=== PATIENT | female | born 1995 | race Hispanic/Latino ===

== ENCOUNTER 2018-04-20 13:12 | Emergency (ER) | payer OTHER, SELFPAY ==
--- OUTSIDE RECORDS SUMMARY | 2018-04-20 13:17 | XMS REPORT | Summary of Care ---
:1995 Author Organization [facility] [place] Address [address] [place] [address]- Encounter HQ Encntr_alias(FIN) [id number] Date(s): 06/20/16 - 06/20/16 [facility] Out[facility] Imaging [address], [facility] [address] [place] [address]- [phone] Discharge Disposition: Home or Self Care Attending Physician: Adam Sandoval MD Vital Signs No data available for this section Problem List No data available for this section Allergies, Adverse Reactions, Alerts No data available for this section Medications No data available for this section Results No data available for this section Immunizations No data available for this section Procedures No data available for this section Social History No data available for this section Assessment and Plan No data available for this section
--- OUTSIDE RECORDS SUMMARY | 2018-04-20 13:17 | XMS REPORT | Continuity of Care Document ---
:1995 Author Organization Interface Problems Problem Status Onset Classification Date Comments Source Date Reported M25.561 - Active [facility] PAIN [facility] 7 [facility] RIGHT KNEE Medications Medication Details Route Status Patient Ordering Order Source Instructions Provider Date Allergies, Adverse Reactions, Alerts Substance Category Reaction Severity Reaction Status Date Comments Source type Reported Immunizations Immunization Date Given Site Status Last Updated Comments Source Results Order Results Value Reference Date Interpretation Comments Source Name Range Knee wo Knee wo MR RIGHT KNEE WITHOUT CONTRAST 06/20 - [facility] contrast contrast /2016 - [facility] MRI HISTORY: M25.561 Pain in right knee, 21-year-old female reports right knee pain, mechanical symptoms, swelling, and subjective instability for approximately 2 years which may be related to exercise, history of arthroscopy and lateral release Read by: Ihsan Crouch MD Dictated Date/time: 06/20/16 10:35 Electronically Signed by: Ihsan Crouch MD 06/20/16 10:44 FINAL REPORT COMPARISON: None available TECHNIQUE: Multiplanar, multisequence noncontrast imaging of the knee. FINDINGS: MENISCI: 1. Medial meniscus: Intact. 2. Lateral meniscus: Intact. CARTILAGE: 3. Medial compartment cartilage: Normal. 4. Lateral compartment cartilage: Normal. CRUCIATE LIGAMENTS: 5. Anterior cruciate ligament: Normal. 6. Posterior cruciate ligament: Normal. COLLATERAL LIGAMENTS: 7. Medial collateral ligament complex: Normal. 8. Lateral collateral ligament complex: Normal. EXTENSOR MECHANISM: 9. Mild surface fibrillation and abnormal signal in the cartilage of the lateral patellar facet. Trochlear cartilage is preserved. 10. Mild lateral patellar subluxation measuring 5 mm. 11. Discontinuity of the lateral patellar retinaculum compatible with prior lateral release. 12. Trace soft tissue inflammatory signal in the superolateral aspect of the infrapatellar fat-pad (sagittal series 601 image 22 and axial series 301 image 14). 13. No tibial tubercle excessive lateralization. Tibial tubercle-trochlear groove distance: 15 mm. (normal less than 15-20 mm) 14. No lateral patellar tilting. Patellar tilt angle: 14 degrees. (normal less than 15 degrees) 15. Normal lateral trochlear inclination: 20 degrees. (normal greater than 11 degrees) 16. Patella orlin. Patellar height ratio: 1.5. (normal less than 1.3) 17. Intact patellar and quadriceps tendons. OTHER: 18. No fracture or marrow edema. 19. No joint effusion or popliteal cyst. IMPRESSION: 1. No meniscus tear. 2. Mild lateral patellar chondromalacia, trace inflammation in the infrapatellar fat-pad, and patella orlin. 3. Changes of prior lateral release. Thank you for referring your patient to [facility] and [facility]. SL: [id number] Vital Signs Vital Sign Value Date Comments Source Encounters Location Location Encounter Encounter Reason Attending ADM DC Status Source Details Type Number For Provider Date Date Visit ANDRY Rueda [id number] Adam 06/20 06/21 [facility] Full /2016 [facility] Procedures Procedure Code Date Perfomer Comments Source
--- NOTE | 2018-04-20 14:16 | EDPHYS ---
Physician Documentation [facility] Name: Naomi Hurt Age: 23 yrs Sex: Female : 1995 Arrival Date: 04/20/2018 Time: 13:15 Bed 10 Private MD: None, None ED Physician Mando Karimi HPI: 04/20 14:11 This 23 yrs old Female presents to ER via Ambulatory with complaints of Sore nelia Throat, Fever. 14:11 The patient presents with sore throat. The patient describes throat pain as burning, nelia constant. Onset: The symptoms/episode began/occurred 2 day(s) ago. Severity of symptoms: At their worst the symptoms were mild, moderate, in the emergency department the symptoms are unchanged. Modifying factors: The symptoms are alleviated by nothing, the symptoms are aggravated by swallowing. Associated signs and symptoms: Pertinent positives: fever. The patient has not experienced similar symptoms in the past. 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 - Social history:: Smoking status: Patient/guardian denies using tobacco. - Ebola Screening: : No symptoms or risks identified at this time. ROS: 14:13 Constitutional: Negative for fever, chills, and weight loss, Eyes: Negative for injury, nelia pain, redness, and discharge, Neck: Negative for injury, pain, and swelling, Cardiovascular: Negative for chest pain, palpitations, and edema, Respiratory: Negative for shortness of breath, cough, wheezing, and pleuritic chest pain, Abdomen/GI: Negative for abdominal pain, nausea, vomiting, diarrhea, and constipation, Back: Negative for injury and pain, : Negative for injury, bleeding, discharge, and swelling, MS/Extremity: Negative for injury and deformity, Skin: Negative for injury, rash, and discoloration, Neuro: Negative for headache, weakness, numbness, tingling, and seizure, Psych: Negative for depression, anxiety, suicide ideation, homicidal ideation, and hallucinations, Allergy/Immunology: Negative for hives, rash, and allergies, Endocrine: Negative for neck swelling, polydipsia, polyuria, polyphagia, and marked weight changes, Hematologic/Lymphatic: Negative for swollen nodes, abnormal bleeding, and unusual bruising. 14:13 ENT: Positive for difficulty swallowing, sore throat. Exam: 14:13 Constitutional: This is a well developed, well nourished patient who is awake, alert, nelia and in no acute distress. Head/Face: Normocephalic, atraumatic. Eyes: Pupils equal round and reactive to light, extra-ocular motions intact. Lids and lashes normal. Conjunctiva and sclera are non-icteric and not injected. Cornea within normal limits. Periorbital areas with no swelling, redness, or edema. Neck: Trachea midline, no thyromegaly or masses palpated, and no cervical lymphadenopathy. Supple, full range of motion without nuchal rigidity, or vertebral point tenderness. No Meningismus. Chest/axilla: Normal chest wall appearance and motion. Nontender with no deformity. No lesions are appreciated. Cardiovascular: Regular rate and rhythm with a normal S1 and S2. No gallops, murmurs, or rubs. Normal PMI, no JVD. No pulse deficits. Respiratory: Lungs have equal breath sounds bilaterally, clear to auscultation and percussion. No rales, rhonchi or wheezes noted. No increased work of breathing, no retractions or nasal flaring. Abdomen/GI: Soft, non-tender, with normal bowel sounds. No distension or tympany. No guarding or rebound. No evidence of tenderness throughout. Female : Normal external genitalia. Skin: Warm, dry with normal turgor. Normal color with no rashes, no lesions, and no evidence of cellulitis. MS/ Extremity: Pulses equal, no cyanosis. Neurovascular intact. Full, normal range of motion. Neuro: Awake and alert, GCS 15, oriented to person, place, time, and situation. Cranial nerves II-XII grossly intact. Motor strength 5/5 in all extremities. Sensory grossly intact. Cerebellar exam normal. Normal gait. Psych: Awake, alert, with orientation to person, place and time. Behavior, mood, and affect are within normal limits. 14:13 ENT: Posterior pharynx: Tonsils: bilaterally enlarged, with erythema, with exudate, Uvula: normal, midline, erythema, swelling, that is mild, erythema, that is mild, exudate, that is moderate, peritonsillar mass, is not appreciated. Vital Signs: 13:20 BP 128 / 88; Pulse 100; Resp 16; Temp 98.4; Pulse Ox 100% on R/A; Weight 70.31 kg; hb Height 5 ft. (152.40 cm); Pain 10/10; 13:20 Body Mass Index 30.27 (70.31 kg, 152.40 cm) MDM: 13:28 Patient medically screened. [facility] 04/20 13:22 Order name: Strep 04/20 13:22 Order name: Flu 04/20 14:47 Order name: Group A Streptococcus Rapid Sc EDMS 04/20 14:47 Order name: Influenza Screen (A EDPR Administered Medications: 14:40 Drug: Bicillin L-A 1.8 million units Route: IM; Site: left gluteus; hb Disposition: 04/20/18 14:15 Discharged to Home. Impression: Acute tonsillitis, Fever, unspecified. - Condition is Stable. - Discharge Instructions: Fever, Adult, Tonsillitis, Tonsillitis, Ofeb-up-Cade, Fever, Adult, Ujar-oy-Rxwl. - Work release form, Medication Reconciliation Form, Thank You Letter, Antibiotic Education, Prescription Opioid Use form. - Follow up: Private Physician; When: 2 - 3 days; Reason: Recheck today's complaints, Continuance of care, Re-evaluation by your physician. - Problem is new. - Symptoms have improved. Signatures: Dispatcher [employer] EDLauri Edwards RN RN sg Anderson, Corey, MD MD cha Baxter, Heather, RN RN Corrections: (The following items were deleted from the chart) 15:28 14:15 04/20/2018 14:15 Discharged to Home. Impression: Acute tonsillitis; Fever, sg unspecified. Condition is Stable. Forms are Medication Reconciliation Form, Thank You Letter, Antibiotic Education, Prescription Opioid Use. Follow up: Private Physician; When: 2 - 3 days; Reason: Recheck today's complaints, Continuance of care, Re-evaluation by your physician. Problem is new. Symptoms have improved. nelia
--- NOTE | 2018-04-20 14:16 | ER ---
Nurse's Notes [facility] Name: Naomi Hurt Age: 23 yrs Sex: Female : 1995 Arrival Date: 04/20/2018 Time: 13:15 Bed 10 Private MD: None, None Diagnosis: Acute tonsillitis;Fever, unspecified Presentation: 04/20 13:19 Presenting complaint: Patient states: Sore throat, pain with cough, productive cough hb with green sputum, body aches, sinus congestion, and fever x 3 days. Transition of care: patient was not received from another setting of care. Onset of symptoms was April 20, 2018. Risk Assessment: Do you want to hurt yourself or someone else? Patient reports no desire to harm self or others. Care prior to arrival: None. 13:19 Method Of Arrival: Ambulatory hb 13:19 Acuity: MANDEEP 4 hb 13:45 Initial Sepsis Screen: Does the patient meet any 2 criteria? No. Patient's initial hb sepsis screen is negative. Does the patient have a suspected source of infection? No. Patient's initial sepsis screen is negative. 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 - Social history:: Smoking status: Patient/guardian denies using tobacco. - Ebola Screening: : No symptoms or risks identified at this time. Screenin:45 Abuse screen: Denies threats or abuse. Denies injuries from another. Nutritional hb screening: No deficits noted. Tuberculosis screening: No symptoms or risk factors identified. Fall Risk None identified. Assessment: 13:44 General: Appears in no apparent distress. Behavior is calm, cooperative. Pain: Pain hb currently is 10 out of 10 on a pain scale. Neuro: Level of Consciousness is awake, alert, obeys commands, Oriented to person, place, time, situation. Cardiovascular: Capillary refill < 3 seconds Patient's skin is warm and dry. Respiratory: Airway is patent Trachea midline Respiratory effort is even, unlabored, Respiratory pattern is regular, symmetrical, Breath sounds are clear bilaterally. GI: No signs and/or symptoms were reported involving the gastrointestinal system. : No signs and/or symptoms were reported regarding the genitourinary system. EENT: Throat is reddened has patchy exudate has enlarged tonsils bilaterally. Derm: Skin is intact, is healthy with good turgor. Musculoskeletal: No signs and/or symptoms reported regarding the musculoskeletal system. Vital Signs: 13:20 BP 128 / 88; Pulse 100; Resp 16; Temp 98.4; Pulse Ox 100% on R/A; Weight 70.31 kg; hb Height 5 ft. (152.40 cm); Pain 10/10; 13:20 Body Mass Index 30.27 (70.31 kg, 152.40 cm) hb ED Course: 13:15 Patient arrived in ED. sb2 13:17 None, None is Private Physician. sb2 13:20 Triage completed. hb 13:21 Arm band placed on left wrist. 13:28 Mando Karimi MD is Attending Physician. nelia 13:44 Barbi Salter, RN is Primary Nurse. hb 13:45 Patient has correct armband on for positive identification. Call light in reach. hb 13:45 No provider procedures requiring assistance completed. sg 15:25 Patient did not have IV access during this emergency room visit. sg Administered Medications: 14:40 Drug: Bicillin L-A 1.8 million units Route: IM; Site: left gluteus; hb Outcome: 14:15 Discharge ordered by . [facility] 15:25 Discharged to home ambulatory. sg 15:25 Condition: good 15:25 Discharge instructions given to patient, Instructed on discharge instructions, follow up and referral plans. safety practices, Demonstrated understanding of instructions, follow-up care. 15:28 Patient left the ED. sg Signatures: Lauri Holman, RN RN Mando Art MD MD cha Baxter, Heather, KAMILA TREVIÑO Suzie Shirley sb2 Corrections: (The following items were deleted from the chart) 15:29 15:25 Discharge instructions given to patient, Instructed on discharge instructions, sg follow up and referral plans. safety practices, Demonstrated understanding of instructions, follow-up care, Prescriptions given X 1, sg
[2018-04-20] MEDS ORDERED: PEN G BENZ LA 2.4 MU/4 ML SYRINGE IM ONE (14:48)
== END 2018-04-20 15:28 | disposition home or self-care (01) ==
LOC: ER 13:12
DX: J03.90 Acute tonsillitis, unspecified (principal); R50.9 Fever, unspecified
CPT/HCPCS: 87070; 87081; 87804; 96372; 99283; J0561

== ENCOUNTER 2019-01-11 08:55 | Emergency (ER) | payer BC, SELFPAY ==
--- OUTSIDE RECORDS SUMMARY | 2019-01-11 08:57 | XMS REPORT | Continuity of Care Document ---
:1995 Author Organization [facility] Care Team Providers Name Role Phone [facility] Unavailable Unavailable Problems Problem Status Onset Classification Date Comments Source Date Reported M25.561 - Active [facility] PA[facility] RIGHT KNEE Medications No Data Provided for This Section Allergies, Adverse Reactions, Alerts No Known Medication Allergies Immunizations No Data Provided for This Section Results No Data Provided for This Section Pathology Reports No Data Provided for This Section Diagnostic Reports Report Value Date Source Knee wo contrast MRI MR RIGHT KNEE WITHOUT CONTRAST 06/20/2016 [facility] HISTORY: M25.561 Pain in right knee, 21-year-old female reports right knee pain, mechanical symptoms, swelling, and subjective instability for approximately 2 years which may be related to exercise, history of arthroscopy and lateral release COMPARISON: None available TECHNIQUE: Multiplanar, multisequence noncontrast [...] Thank you for referring your patient to [facility] and [facility]. SL: [id number] Consultation Notes No Data Provided for This Section Discharge Summaries No Data Provided for This Section History and Physicals No Data Provided for This Section Vital Signs No Data Provided for This Section Encounters Location Location Encounter Encounter Reason Attending ADM DC Status Source Details Type Number For Provider Date Date Visit [facility] Outpt Diag [id number] Adam 06/20 06/21 [facility] Procedures No Data Provided for This Section Assessment and Plan No Data Provided for This Section Plan of Care No Data Provided for This Section Social History Social History Date Source No data available for this 06/21/2016 [facility] section Family History No Data Provided for This Section Advance Directives No Data Provided for This Section Functional Status No Data Provided for This Section
--- NOTE | 2019-01-11 09:31 | ER ---
Nurse's Notes [facility] Name: Naomi Hurt Age: 23 yrs Sex: Female : 1995 Arrival Date: 01/11/2019 Time: 08:58 Bed 14 Private MD: Diagnosis: Acute tonsillitis Presentation: 01/11 08:59 Presenting complaint: Patient states: Throat started hurting a week ago and she is rb1 running a fever off and on. Transition of care: patient was not received from another setting of care. Onset of symptoms is unknown. Risk Assessment: Do you want to hurt yourself or someone else? Patient reports no desire to harm self or others. Initial Sepsis Screen: Does the patient meet any 2 criteria? No. Patient's initial sepsis screen is negative. Does the patient have a suspected source of infection? No. Patient's initial sepsis screen is negative. Care prior to arrival: None. 08:59 Method Of Arrival: Ambulatory rb1 08:59 Acuity: MANDEEP 3 rb1 Triage Assessment: 08:59 General: Appears in no apparent distress. comfortable, Behavior is calm, cooperative, rb1 Reports fever for. Pain: Complains of pain in throat Pain currently is 9 out of 10 on a pain scale. Pain began x 1 week. EENT: Throat is reddened. Neuro: Level of Consciousness is awake, alert, obeys commands, Oriented to person, place, time, situation. Cardiovascular: Capillary refill < 3 seconds is brisk in bilateral fingers. Respiratory: Reports cough that is dry, Airway is patent Respiratory effort is even, unlabored, Respiratory pattern is regular, symmetrical. GI: No signs and/or symptoms were reported involving the gastrointestinal system. : No signs and/or symptoms were reported regarding the genitourinary system. Derm: Skin is pink, warm \T\ dry. Musculoskeletal: Range of motion: intact in all extremities. 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 - Social history:: Smoking status: Patient/guardian denies using tobacco. - Ebola Screening: : Patient negative for fever greater than or equal to 101.5 degrees Fahrenheit, and additional compatible Ebola Virus Disease symptoms. - Family history:: not pertinent. Screenin:59 Abuse screen: Denies threats or abuse. Nutritional screening: No deficits noted. rb1 Tuberculosis screening: No symptoms or risk factors identified. Fall Risk None identified. Assessment: 08:59 General: See triage assessment. rb1 08:59 Respiratory: Breath sounds are clear bilaterally. rb1 09:40 Reassessment: Discharge pending due to shot time. rb1 09:53 Reassessment: Patient appears in no apparent distress at this time. No changes from rb1 previously documented assessment. Vital Signs: 08:59 BP 128 / 82; Pulse 80; Resp 16; Temp 97.7(TE); Pulse Ox 99% on R/A; Weight 75.75 kg rb1 (R); Height 5 ft. 0 in. (152.40 cm) (R); Pain 9/10; 09:53 BP 127 / 75; Pulse 77; Resp 17; Temp 98.0(O); Pulse Ox 100% on R/A; Pain 9/10; rb1 08:59 Body Mass Index 32.61 (75.75 kg, 152.40 cm) [facility] ED Course: 08:58 Patient arrived in ED. mr 08:59 Kristen Myles, RN is Primary Nurse. rb1 08:59 Arm band placed on right wrist. rb1 08:59 Patient has correct armband on for positive identification. Bed in low position. Call rb1 light in reach. Side rails up X 1. Pulse ox on. NIBP on. 09:01 Mando Karimi MD is Attending Physician. nelia 09:05 Strep swab sent to lab. rb1 09:15 Triage completed. rb1 09:53 No provider procedures requiring assistance completed. Patient did not have IV access rb1 during this emergency room visit. Administered Medications: 09:36 Drug: Clindamycin 300 mg Route: PO; rb1 09:52 Follow up: Response: No adverse reaction; Pt. has had this medication in the past. rb1 09:37 Drug: Bicillin L-A 1.2 million units Route: IM; Site: left gluteus; rb1 09:55 Follow up: Response: No adverse reaction; Pt. has had this medication in the past. rb1 09:39 Drug: Decadron 10 mg Route: IM; Site: left deltoid; rb1 09:52 Follow up: Response: No adverse reaction rb1 Intake: Outcome: 09:31 Discharge ordered by . nelia 09:53 Discharged to home ambulatory. rb1 09:53 Condition: stable 09:53 Discharge instructions given to patient, Instructed on discharge instructions, follow up and referral plans. medication usage, Demonstrated understanding of instructions, follow-up care, medications, Prescriptions given X 1. 09:56 Patient left the ED. rb1 Signatures: Mando Karimi MD MD cha Rivera, Mary mr Barber, Rebecca, RN RN rb1
[2019-01-11] MEDS ORDERED: dexAMETHasone 10 MG/ML VIAL ONE (09:32)
[2019-01-11] MEDS ORDERED: CLINDAMYCIN HCL 150 MG CAP ONE (09:32)
--- NOTE | 2019-01-11 09:32 | EDPHYS ---
Physician Documentation [facility] Name: Naomi Hurt Age: 23 yrs Sex: Female : 1995 Arrival Date: 01/11/2019 Time: 08:58 Bed 14 Private MD: ED Physician Mando Karimi HPI: 01/11 09:28 This 23 yrs old Female presents to ER via Ambulatory with complaints of Sore nelia Throat. 09:28 The patient presents with sore throat. The patient describes throat pain as burning, nelia constant. Onset: The symptoms/episode began/occurred 5 day(s) ago. Severity of symptoms: At their worst the symptoms were mild, moderate, in the emergency department the symptoms are unchanged. Modifying factors: The symptoms are alleviated by nothing. Associated signs and symptoms: The patient has no apparent associated signs or symptoms. The patient has not experienced similar symptoms in the past. 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 - Social history:: Smoking status: Patient/guardian denies using tobacco. - Ebola Screening: : Patient negative for fever greater than or equal to 101.5 degrees Fahrenheit, and additional compatible Ebola Virus Disease symptoms. - Family history:: not pertinent. ROS: 09:28 Constitutional: Negative for fever, chills, and weight loss, Eyes: Negative for injury, nelia pain, redness, and discharge, Neck: Negative for injury, pain, and swelling, Cardiovascular: Negative for chest pain, palpitations, and edema, Respiratory: Negative for shortness of breath, cough, wheezing, and pleuritic chest pain, Abdomen/GI: Negative for abdominal pain, nausea, vomiting, diarrhea, and constipation, Back: Negative for injury and pain, : Negative for injury, bleeding, discharge, and swelling, MS/Extremity: Negative for injury and deformity, Skin: Negative for injury, rash, and discoloration, Neuro: Negative for headache, weakness, numbness, tingling, and seizure, Psych: Negative for depression, anxiety, suicide ideation, homicidal ideation, and hallucinations, Allergy/Immunology: Negative for hives, rash, and allergies, Endocrine: Negative for neck swelling, polydipsia, polyuria, polyphagia, and marked weight changes, Hematologic/Lymphatic: Negative for swollen nodes, abnormal bleeding, and unusual bruising. 09:28 ENT: Positive for difficulty swallowing, sinus congestion, sore throat. Exam: 09:28 Constitutional: This is a well developed, well nourished patient who is awake, alert, nelia and in no acute distress. Head/Face: Normocephalic, atraumatic. Eyes: Pupils equal round and reactive to light, extra-ocular motions intact. Lids and lashes normal. Conjunctiva and sclera are non-icteric and not injected. Cornea within normal limits. Periorbital areas with no swelling, redness, or edema. Neck: Trachea midline, no thyromegaly or masses palpated, and no cervical lymphadenopathy. Supple, full range of motion without nuchal rigidity, or vertebral point tenderness. No Meningismus. Chest/axilla: Normal chest wall appearance and motion. Nontender with no deformity. No lesions are appreciated. Cardiovascular: Regular rate and rhythm with a normal S1 and S2. No gallops, murmurs, or rubs. Normal PMI, no JVD. No pulse deficits. Respiratory: Lungs have equal breath sounds bilaterally, clear to auscultation and percussion. No rales, rhonchi or wheezes noted. No increased work of breathing, no retractions or nasal flaring. Abdomen/GI: Soft, non-tender, with normal bowel sounds. No distension or tympany. No guarding or rebound. No evidence of tenderness throughout. Back: No spinal tenderness. No costovertebral tenderness. Full range of motion. Skin: Warm, dry with normal turgor. Normal color with no rashes, no lesions, and no evidence of cellulitis. MS/ Extremity: Pulses equal, no cyanosis. Neurovascular intact. Full, normal range of motion. Neuro: Awake and alert, GCS 15, oriented to person, place, time, and situation. Cranial nerves II-XII grossly intact. Motor strength 5/5 in all extremities. Sensory grossly intact. Cerebellar exam normal. Normal gait. Psych: Awake, alert, with orientation to person, place and time. Behavior, mood, and affect are within normal limits. 09:28 ENT: Posterior pharynx: Tonsils: enlarged on the right, enlarged on the left, with erythema, with exudate, right greater than left, Uvula: normal, midline, swelling, is not appreciated, that is mild, erythema, that is mild, exudate, that is mild. Vital Signs: 08:59 BP 128 / 82; Pulse 80; Resp 16; Temp 97.7(TE); Pulse Ox 99% on R/A; Weight 75.75 kg rb1 (R); Height 5 ft. 0 in. (152.40 cm) (R); Pain 9/10; 09:53 BP 127 / 75; Pulse 77; Resp 17; Temp 98.0(O); Pulse Ox 100% on R/A; Pain 9/10; rb1 08:59 Body Mass Index 32.61 (75.75 kg, 152.40 cm) rb1 MDM: 09:01 Patient medically screened. [facility] 09:30 Data reviewed: vital signs, nurses notes, lab test result(s). [facility] 01/11 09:01 Order name: Strep rb1 Administered Medications: 09:36 Drug: Clindamycin 300 mg Route: PO; rb1 09:52 Follow up: Response: No adverse reaction; Pt. has had this medication in the past. rb1 09:37 Drug: Bicillin L-A 1.2 million units Route: IM; Site: left gluteus; rb1 09:55 Follow up: Response: No adverse reaction; Pt. has had this medication in the past. rb1 09:39 Drug: Decadron 10 mg Route: IM; Site: left deltoid; rb1 09:52 Follow up: Response: No adverse reaction rb1 Disposition: 01/11/19 09:31 Discharged to Home. Impression: Acute tonsillitis. - Condition is Stable. - Discharge Instructions: Tonsillitis, Tonsillitis, [id number]. - Prescriptions for Clindamycin HCl 300 mg Oral Capsule - take 1 capsule by ORAL route every 6 hours for 7 days; 28 capsule. - Work release form, Medication Reconciliation Form, Thank You Letter, Antibiotic Education, Prescription Opioid Use form. - Follow up: Private Physician; When: 2 - 3 days; Reason: Recheck today's complaints, Continuance of care, Re-evaluation by your physician. - Problem is new. - Symptoms have improved. Signatures: Dispatcher [employer] EDMS Mando Karimi MD MD cha Barber, Rebecca RN RN rb1 Corrections: (The following items were deleted from the chart) 09:56 09:31 01/11/2019 09:31 Discharged to Home. Impression: Acute tonsillitis. Condition is rb1 Stable. Forms are Medication Reconciliation Form, Thank You Letter, Antibiotic Education, Prescription Opioid Use. Follow up: Private Physician; When: 2 - 3 days; Reason: Recheck today's complaints, Continuance of care, Re-evaluation by your physician. Problem is new. Symptoms have improved. nelia
[2019-01-11] MEDS ORDERED: PEN G BENZ LA 1.2MU/2ML SYRINGE IM ONE (09:33)
== END 2019-01-11 09:56 | disposition home or self-care (01) ==
LOC: ER 08:55
DX: J03.90 Acute tonsillitis, unspecified (principal)
CPT/HCPCS: 87070; 87081; 96372; 99284; J0561; J1100

== ENCOUNTER 2019-01-24 22:11 | Emergency (ER) | payer BC ==
--- OUTSIDE RECORDS SUMMARY | 2019-01-24 22:13 | XMS REPORT | Continuity of Care Document ---
:1995 Author Organization [facility] Care Team Providers Name Role Phone [employer] Unavailable Unavailable Problems Problem Status Onset Classification Date Comments Source Date Reported M25.561 - Active [facility] PAIN IN [facility] [place] RIGHT KNEE Medications No Data Provided for This Section Allergies, Adverse Reactions, Alerts No Known Medication Allergies Immunizations No Data Provided for This Section Results No Data Provided for This Section Pathology Reports No Data Provided for This Section Diagnostic Reports Report Value Date Source Knee wo contrast MRI MR RIGHT KNEE WITHOUT CONTRAST 06/20/2016 [facility] [place] HISTORY: M25.561 Pain in right knee, 21-year-old [...] Thank you for referring your patient to [facility] and [facility]. SL: [id number] Consultation Notes No Data Provided for This Section Discharge Summaries No Data Provided for This Section History and Physicals No Data Provided for This Section Vital Signs No Data Provided for This Section Encounters Location Location Encounter Encounter Reason Attending ADM DC Status Source Details Type Number For Provider Date Date Visit [facility] Outpt Diag [id number] Adam 06/20 06/21 [facility] Procedures No Data Provided for This Section Assessment and Plan No Data Provided for This Section Plan of Care No Data Provided for This Section Social History Social History Date Source No data available for this 06/21/2016 [facility] [place] section Family History No Data Provided for This Section Advance Directives No Data Provided for This Section Functional Status No Data Provided for This Section
[2019-01-25] MEDS ORDERED: KETOROLAC 30 MG/ML INJ ONE
[2019-01-25] MEDS ORDERED: NA CHLORIDE 0.9% 1,000 ML ONE
[2019-01-25 00:23] LABS: Absolute Lymphocytes (CBC) 2.1 K/uL (0.7-4.9); Basophils % 0.2 % (0-1.3); Hematocrit 38.8 % (36.0-45.0); Lymphocytes % 21.7 % (15.3-44.8); MPV 10.6 fL (7.6-11.3); RBC Red Blood Cell Count 4.78 M/uL (3.86-4.86)
[2019-01-25 00:33] LABS: Protime INR 1.04
[2019-01-25 00:42] LABS: ALT/SGPT 51 U/L (12-78); AST/SGOT 21 U/L (15-37); Albumin 3.9 g/dL (3.4-5.0); Alkaline Phosphatase 94 U/L (45-117); BUN Blood Urea Nitrogen 15 mg/dL (7-18); Bicarbonate 25 mmol/L (21-32); Bilirubin Direct < 0.1 mg/dL (0-0.2); Bilirubin Total 0.2 mg/dL (0.2-1.0); Glucose Level 104 mg/dL (74-106); Lipase 129 U/L (73-393); Magnesium 2.2 mg/dL (1.8-2.4); NT PRO-BNP 25 pg/mL (<125); Potassium 3.3 mmol/L (3.5-5.1); Protein, Total 8.2 g/dL (6.4-8.2); Sodium Level 142 mmol/L (136-145); Troponin (Emerg Dept Use Only) < 0.02 ng/mL (0.0-0.045)
--- NOTE | 2019-01-25 01:50 | ER ---
Nurse's Notes [facility] Name: Naomi Hurt Age: 24 yrs Sex: Female : 1995 Arrival Date: 01/24/2019 Time: 22:12 Bed 5 Private MD: Eliezer Flores Diagnosis: Other chest pain Presentation: 01/24 22:26 Presenting complaint: Patient states: She was recently diagnosed with tonsillitis on ajJanuary 11, but she also has some chest congestion and discomfort. She was given a Rx for Clindamycin, which she took for 4 days but then it was giving her dark colored diarrhea so she stopped taking. Her chest discomfort never went away, and now it has gotten worse. Reports substernal chest pain that is worse when she takes a deep breath or coughs. Respirations are even and unlabored. Transition of care: patient was not received from another setting of care. Onset of symptoms was January 24, 2019. Risk Assessment: Do you want to hurt yourself or someone else? Patient reports no desire to harm self or others. Initial Sepsis Screen: Does the patient meet any 2 criteria? HR > 90 bpm. No. Patient's initial sepsis screen is negative. Does the patient have a suspected source of infection? No. Patient's initial sepsis screen is negative. Care prior to arrival: None. 22:26 Method Of Arrival: Ambulatory aj1 22:26 Acuity: MANDEEP 3 aj1 Triage Assessment: 22:30 General: Appears in no apparent distress. uncomfortable, Behavior is calm, cooperative, aj1 appropriate for age. Pain: Complains of pain in mid-sternal area Pain does not radiate. Pain currently is 10 out of 10 on a pain scale. Neuro: Level of Consciousness is awake, alert, obeys commands. Cardiovascular: Reports chest pain, Patient's skin is warm and dry. Respiratory: Airway is patent Respiratory effort is even, unlabored, Respiratory pattern is regular, symmetrical. 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 - Social history:: Smoking status: Patient/guardian denies using tobacco. - Ebola Screening: : Patient denies travel to an Ebola-affected area in the 21 days before illness onset. Screenin:15 Abuse screen: Denies threats or abuse. Nutritional screening: No deficits noted. fc Tuberculosis screening: No symptoms or risk factors identified. Fall Risk None identified. Assessment: 23:34 General: Appears uncomfortable, obese, well groomed, Behavior is cooperative, fc appropriate for age, crying. Pain: Complains of pain in mid-sternal area Quality of pain is described as aching, tender, Pain began 1 day ago. Is episodic, Aggravated by breathing. Neuro: Level of Consciousness is awake, alert, obeys commands, Oriented to person, place, time, situation, Appropriate for age. Cardiovascular: Reports chest pain, shortness of breath, Heart tones S1 S2 present Capillary refill < 3 seconds Rhythm is regular Chest pain is described as vague, is located in substernal area began 1 day ago episodes are intermittent. Respiratory: Reports shortness of breath cough that is dry, Airway is patent Respiratory effort is even, unlabored, Respiratory pattern is regular, symmetrical, Breath sounds are clear bilaterally. Onset: The symptoms/episode began/occurred gradually, the patient has mild shortness of breath. GI: No deficits noted. : No deficits noted. EENT: No deficits noted. Derm: Skin is pink, warm \T\ dry. Musculoskeletal: Circulation, motion, and sensation intact. Capillary refill < 3 seconds, Range of motion: intact in all extremities. 01/25 00:17 Reassessment: No changes from previously documented assessment. Patient and/or family fc updated on plan of care and expected duration. Pain level reassessed. Patient is alert, oriented x 3, equal unlabored respirations, skin warm/dry/pink. Pt given medications as ordered. Family remains at bedside. 00:51 Reassessment: No changes from previously documented assessment. Patient and/or family fc updated on plan of care and expected duration. Pain level reassessed. Patient is alert, oriented x 3, equal unlabored respirations, skin warm/dry/pink. Pt states that she is no longer feeling the chest pressure. 01:22 Reassessment: Pt is now just pending results of testing. fc 01:55 Reassessment: Page PA in to see and discuss d/c instructions with pt. fc Vital Signs: 01/24 22:30 BP 137 / 89; Pulse 93; Resp 18; Temp 98.9; Pulse Ox 100% on R/A; Weight 75.75 kg (R); aj1 Height 5 ft. 0 in. (152.40 cm) (R); Pain 10/10; 23:30 BP 114 / 62; Pulse 91; Resp 18; Pulse Ox 100% on R/A; fc 01/25 00:17 BP 137 / 88; Pulse 73; Resp 20; Pulse Ox 100% on R/A; fc 00:52 BP 129 / 83; Pulse 79; Resp 20; Pulse Ox 99% on R/A; Pain 4/10; fc 01:23 BP 124 / 75; Pulse 81; Resp 18; Pulse Ox 100% ; fc 02:03 BP 129 / 72; Pulse 78; Resp 18; Temp 98.0; Pulse Ox 100% on R/A; Pain 2/10; fc 01/24 22:30 Body Mass Index 32.61 (75.75 kg, 152.40 cm) aj ED Course: 01/24 22:12 Patient arrived in ED. cl3 22:13 Eliezer Flores DO is Private Physician. cl3 22:29 Triage completed. aj1 22:30 Arm band placed on Patient placed in waiting room, Patient notified of wait time. aj1 23:03 Mando Hartmann PA is PHCP. cp 23:03 Robert Oliveira MD is Attending Physician. cp 23:15 Patient has correct armband on for positive identification. Bed in low position. Call fc light in reach. Side rails up X 1. lunchroom monitor on. Pulse ox on. NIBP on. 23:15 No provider procedures requiring assistance completed. Patient maintains SpO2 fc saturation greater than 95% on room air. 01/25 00:01 Initial lab(s) drawn, by me, sent to lab. Inserted saline lock: 22 gauge in right lt1 forearm, using aseptic technique. 00:33 XRAY Chest (1 view) In Process Unspecified. EDMS 02:04 IV discontinued, intact, bleeding controlled, No redness/swelling at site. Pressure fc dressing applied. Administered Medications: 00:08 Drug: NS 0.9% 1000 ml Route: IV; Rate: 1 bolus; Site: right antecubital; fc 02:03 Follow up: Response: No adverse reaction; No change in condition; IV Status: Completed fc infusion; IV Intake: 1000ml 00:10 Drug: TORadol 30 mg Route: IVP; Site: right antecubital; fc 00:50 Follow up: Response: No adverse reaction; Pain is decreased fc Intake: 02:03 IV: 1000ml; Total: 1000ml. fc Outcome: 01:48 Discharge ordered by MD. cp 02:04 Discharged to home ambulatory, with family. fc 02:04 Condition: good 02:04 Discharge instructions given to patient, family, Instructed on discharge instructions, follow up and referral plans. no drinking with medication, no driving heavy equipment, medication usage, Demonstrated understanding of instructions, follow-up care, medications, Prescriptions given X 1. 02:17 Patient left the ED. Signatures: Dispatcher [employer] EDMarge Phoenix RN RN Josefina Arriola RN RN fc Mando Hartmann PA PA cp Tran, Leah 1 Avtar Egan cl3
--- NOTE | 2019-01-25 01:50 | EDPHYS ---
Physician Documentation [facility] Name: Naomi Hurt Age: 24 yrs Sex: Female : 1995 Arrival Date: 01/24/2019 Time: 22:12 Bed 5 Private MD: Freddie Floresh ED Physician Robert Oliveira HPI: 01/24 23:15 This 24 yrs old Female presents to ER via Ambulatory with complaints of Chest cp Pain. 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 - Social history:: Smoking status: Patient/guardian denies using tobacco. - Ebola Screening: : Patient denies travel to an Ebola-affected area in the 21 days before illness onset. ROS: 23:20 Constitutional: Negative for body aches, chills, fever, poor PO intake. cp 23:20 Eyes: Negative for injury, pain, redness, and discharge. cp 23:20 ENT: Negative for drainage from ear(s), ear pain, sinus congestion, sinus pain, sore throat. 23:20 Cardiovascular: Positive for chest pain, Negative for edema, palpitations. 23:20 Respiratory: Negative for cough, shortness of breath, wheezing. 23:20 Abdomen/GI: Negative for abdominal pain, nausea, vomiting, and diarrhea. 23:20 : Negative for urinary symptoms. 23:20 Skin: Negative for cellulitis, rash. 23:20 Neuro: Negative for altered mental status, headache, syncope, weakness. 23:20 All other systems are negative. Exam: 23:15 ECG was reviewed by the Attending Physician. cp Vital Signs: 22:30 BP 137 / 89; Pulse 93; Resp 18; Temp 98.9; Pulse Ox 100% on R/A; Weight 75.75 kg (R); aj1 Height 5 ft. 0 in. (152.40 cm) (R); Pain 10/10; 23:30 BP 114 / 62; Pulse 91; Resp 18; Pulse Ox 100% on R/A; fc 01/25 00:17 BP 137 / 88; Pulse 73; Resp 20; Pulse Ox 100% on R/A; fc 00:52 BP 129 / 83; Pulse 79; Resp 20; Pulse Ox 99% on R/A; Pain 4/10; fc 01:23 BP 124 / 75; Pulse 81; Resp 18; Pulse Ox 100% ; fc 02:03 BP 129 / 72; Pulse 78; Resp 18; Temp 98.0; Pulse Ox 100% on R/A; Pain 2/10; fc 01/24 22:30 Body Mass Index 32.61 (75.75 kg, 152.40 cm) aj1 MDM: 01/24 23:08 Patient medically screened. cp 01/24 23:36 Order name: Basic Metabolic Panel; Complete Time: 01:28 cp 01/25 01:29 Interpretation: Normal except: K 3.3. cp 01/24 23:36 Order name: CBC with Diff; Complete Time: 01:29 cp 01/25 01:29 Interpretation: Normal except: MCH 26.7. cp 01/24 23:36 Order name: LFT's; Complete Time: 01:28 cp 01/25 01:29 Interpretation: Normal except: GLOB 4.3; A/G 0.9. cp 01/24 23:36 Order name: Magnesium; Complete Time: 01:28 cp 01/24 23:36 Order name: NT PRO-BNP; Complete Time: 01:28 cp 01/24 23:36 Order name: PT-INR; Complete Time: 01:28 cp 01/24 23:36 Order name: Troponin (emerg Dept Use Only); Complete Time: 01:28 cp 01/24 23:36 Order name: XRAY Chest (1 view) cp 01/24 23:36 Order name: D-Dimer; Complete Time: 01:28 cp 01/25 01:29 Interpretation: Within normal limits: D-DIMER < 215. cp 01/24 23:36 Order name: Lipase; Complete Time: 01:28 cp 01/25 00:13 Order name: Urine Dipstick--Ancillary (enter results) ar5 01/25 00:13 Order name: Urine --Ancillary (enter results) ar5 01/24 23:09 Order name: EKG; Complete Time: 23:11 cp 01/24 23:09 Order name: EKG - Nurse/Tech; Complete Time: 23:33 cp 01/24 23:36 Order name: Cardiac monitoring; Complete Time: 23:53 cp 01/24 23:36 Order name: IV Saline Lock; Complete Time: 00:02 cp 01/24 23:36 Order name: Labs collected and sent; Complete Time: 00:02 cp 01/24 23:36 Order name: O2 Per Protocol; Complete Time: 00:02 cp 01/24 23:36 Order name: O2 Sat Monitoring; Complete Time: 00:02 cp 01/24 23:36 Order name: Urine Dipstick-Ancillary (obtain specimen); Complete Time: 00:16 cp 01/24 23:36 Order name: Urine Test (obtain specimen); Complete Time: 00:16 cp EC:15 Rate is 85 beats/min. Rhythm is regular. MT interval is normal. QRS interval is normal. cp QT interval is normal. T waves are Inverted in lead III. Interpreted by me. Reviewed by me. Administered Medications: 01/25 00:08 Drug: NS 0.9% 1000 ml Route: IV; Rate: 1 bolus; Site: right antecubital; 02:03 Follow up: Response: No adverse reaction; No change in condition; IV Status: Completed infusion; IV Intake: 1000ml 00:10 Drug: TORadol 30 mg Route: IVP; Site: right antecubital; 00:50 Follow up: Response: No adverse reaction; Pain is decreased Disposition: 01/25/19 01:48 Discharged to Home. Impression: Other chest pain. - Condition is Stable. - Discharge Instructions: Nonspecific Chest Pain. - Prescriptions for ketorolac 10 mg Oral tablet - take 1 tablet by ORAL route every 6 hours for 5 days not to exceed 40 mg in 24hrs; 20 tablet. - Work release form, Medication Reconciliation Form, Thank You Letter, Antibiotic Education, Prescription Opioid Use form. - Follow up: Private Physician; When: 2 - 3 days; Reason: Recheck today's complaints. - Problem is new. - Symptoms have improved. Signatures: Dispatcher [employer] Marge Wesley RN RN aj1 Josefina Villasenor RN RN fc Mando Hartmann PA PA cp Corrections: (The following items were deleted from the chart) 02:17 01:48 01/25/2019 01:48 Discharged to Home. Impression: Other chest pain. Condition is fc Stable. Forms are Medication Reconciliation Form, Thank You Letter, Antibiotic Education, Prescription Opioid Use. Follow up: Private Physician; When: 2 - 3 days; Reason: Recheck today's complaints. Problem is new. Symptoms have improved. cp
[2019-01-25 02:38] LABS: Urine Blood NEGATIVE (NEG); Urine Glucose NEGATIVE (NEG); Urine Protein NEGATIVE (NEG); Urine Specific Gravity >1.030 (1.005-1.030); Urine pH 5.5 (5.0-7.0)
[2019-01-25 03:41] VITALS: O2SAT 100
[2019-01-25 03:43] VITALS: BP 129/72; TEMP 98
--- NOTE | 2019-01-25 10:21 | RAD REPORT ---
EXAM DESCRIPTION: RAD - Chest Single View - 01/25/2019 12:32 am CLINICAL HISTORY: Chest pain COMPARISON: None. TECHNIQUE: AP portable chest image was obtained 2343 hour . FINDINGS: Lung volumes are low. Lung cross are clear. Heart and vasculature are normal. No measurab le pleural effusion and no pneumothorax. No acute bony abnormality seen. No acute aortic findings renata pected. IMPRESSION: No acute cardiopulmonary process.
--- NOTE | 2019-01-27 16:59 | EKG ---
Test Date: 2019-01-24 Test Time: 23:08:36 Hand Folder: CARTER MEASUREMENT RESULTS: Intervals: Rate: 85 SD: 150 QRSD: 76 QT: 356 QTc: 423 Kennard: P: 35 SD: 150 QRS: 9 T: 17 INTERPRETIVE STATEMENTS: Normal sinus rhythm Minimal voltage criteria for LVH, may be normal variant Borderline ECG No previous ECG available for comparison Electronically Signed On 01-27-19 16:55:42 CDT by Dat Moody
== END 2019-01-25 02:17 | disposition home or self-care (01) ==
LOC: ER 22:11
DX: R07.89 Other chest pain (principal)
CPT/HCPCS: 36415; 71045; 80048; 80076; 81003; 81025; 83690; 83735; 83880; 84484; 85025; 85379; 85610; 93005; 96361; 96374; 99285

== ENCOUNTER 2019-05-05 10:48 | Emergency (ER) | payer BC ==
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
--- NOTE | 2019-05-05 12:37 | EDPHYS ---
Physician Documentation [facility] Name: Naomi Hurt Age: 24 yrs Sex: Female : 1995 Arrival Date: 05/05/2019 Time: 10:52 Bed 25 Private MD: ED Physician Piter Steel HPI: 05/05 12:34 This 24 yrs old Female presents to ER via Ambulatory with complaints of ma2 Shoulder Pain. 12:34 The patient or guardian complains of contusion. Onset: The symptoms/episode ma2 began/occurred suddenly, 3 hour(s) ago. Modifying factors: The symptoms are aggravated by movement, nothing. Associated signs and symptoms: Pertinent positives: Pertinent negatives: abdominal pain, dyspnea. Severity of symptoms: At their worst the symptoms were mild, in the emergency department the symptoms are unchanged. The patient has not experienced similar symptoms in the past. 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 - Social history:: Smoking status: Patient/guardian denies using tobacco, Patient/guardian denies using alcohol, street drugs, The patient lives with family. - Ebola Screening: : No symptoms or risks identified at this time. - Family history:: not pertinent. - Hospitalizations: : No recent hospitalization is reported. ROS: 12:34 Constitutional: Negative for fever, chills, and weight loss. ma2 12:34 All other systems are negative. Exam: 12:34 Constitutional: This is a well developed, well nourished patient who is awake, alert, ma2 and in no acute distress. Head/Face: Normocephalic, atraumatic. Neck: Trachea midline, no thyromegaly or masses palpated, and no cervical lymphadenopathy. Supple, full range of motion without nuchal rigidity, or vertebral point tenderness. No Meningismus. Chest/axilla: Normal chest wall appearance and motion. Nontender with no deformity. No lesions are appreciated. Cardiovascular: Regular rate and rhythm with a normal S1 and S2. No gallops, murmurs, or rubs. Normal PMI, no JVD. No pulse deficits. Respiratory: Lungs have equal breath sounds bilaterally, clear to auscultation and percussion. No rales, rhonchi or wheezes noted. No increased work of breathing, no retractions or nasal flaring. Abdomen/GI: Soft, non-tender, with normal bowel sounds. No distension or tympany. No guarding or rebound. No evidence of tenderness throughout. MS/ Extremity: Pulses equal, no cyanosis. Neurovascular intact. Full, normal range of motion. Neuro: Awake and alert, GCS 15, oriented to person, place, time, and situation. Cranial nerves II-XII grossly intact. Motor strength 5/5 in all extremities. Sensory grossly intact. Cerebellar exam normal. Normal gait. Vital Signs: 10:58 BP 142 / 88; Pulse 69; Resp 16; Temp 97.8; Pulse Ox 100% on R/A; Weight 77.11 kg; hb Height 5 ft. (152.40 cm); Pain 7/10; 12:53 BP 135 / 78; Pulse 70; Resp 18; Temp 98; Pulse Ox 100% on R/A; mg2 10:58 Body Mass Index 33.20 (77.11 kg, 152.40 cm) hb MDM: 11:51 Patient medically screened. ma2 12:34 Differential diagnosis: glenoid fracture, DJD, tendonitis. Data reviewed: vital signs, ma2 nurses notes. Counseling: I had a detailed discussion with the patient and/or guardian regarding: the historical points, exam findings, and any diagnostic results supporting the discharge/admit diagnosis, the presence of at least one elevated blood pressure reading (>120/80) during this emergency department visit, the need for outpatient follow up. Response to treatment: the patient's symptoms have mildly improved after treatment. 05/05 12:06 Order name: Shoulder Right (2 View) XRAY ma2 05/05 12:35 Order name: RAD EDMS Administered Medications: No medications were administered Disposition: 05/05/19 12:36 Discharged to Home. Impression: Pain in right shoulder. - Condition is Stable. - Discharge Instructions: Joint Pain. - Prescriptions for Tylenol- Codeine #3 300-30 mg Oral Tablet - take 2 tablet by ORAL route every 6 hours As needed; 30 tablet. - Medication Reconciliation Form, Thank You Letter, Antibiotic Education, Prescription Opioid Use form. - Follow up: Private Physician; When: Tomorrow; Reason: Continuance of care. Signatures: Dispatcher [employer] Barbi Sifuentes, RN RN Piter Steel MD MD ma2 Julio Cesar Roman RN RN mg2 Corrections: (The following items were deleted from the chart) 12:55 12:36 05/05/2019 12:36 Discharged to Home. Impression: Pain in right shoulder. mg2 Condition is Stable. Prescriptions for Tylenol-Codeine #3 300-30 mg Oral Tablet - take 2 tablet by ORAL route every 6 hours As needed; 30 tablet. and Forms are Medication Reconciliation Form, Thank You Letter, Antibiotic Education, Prescription Opioid Use. Follow up: Private Physician; When: Tomorrow; Reason: Continuance of care. ma2
== END 2019-05-05 12:55 | disposition home or self-care (01) ==
LOC: ER 10:48
DX: M25.511 Pain in right shoulder (principal)
CPT/HCPCS: 99282

== ENCOUNTER 2019-11-05 10:40 | Emergency (ER) | payer BC ==
--- OUTSIDE RECORDS SUMMARY | 2019-11-05 10:42 | XMS REPORT | Continuity of Care Document ---
:1995 Author Organization [employer] Care Team Providers Name Role Phone [employer] Unavailable Un available Problems Problem Status Onset Classification Date Comments Sourc e Date Reported M25.561 - Active [facility] PAIN IN 7 [place] RIGHT KNEE Medications No Data Provided for This Section Allergies, Adverse Reactions, Alerts No Known Medication Allergies Immunizations No Data Provided for This Section Results No Data Provided for This Section Pathology Reports No Data Provided for This Section Diagnostic Reports Report Value Date Source Knee wo contrast MRI MR RIGHT KNEE WITHOUT CONTRAST 06/20/2016 [facility] [place] HISTORY: M25.561 Pain in r ight knee, 21-year-old female reports right knee pain, mechanical symptoms, swelling, and subjective instability for approximately 2 years which may be related to exercise, history of arthroscopy and lateral release COMPARISON: None available TECHNIQUE: Multiplanar, multisequence noncontras t imaging of the knee. FINDINGS: MENISCI: 1. [...] measuring 5 mm. 11. Discontinuity of the lat eral patellar retinaculum compatible with prior lateral release. 12. Trace soft tissue inflam matory signal in the superolateral aspect of the infrapatellar fat-pad (sagittal series 601 image 22 and axial series 301 image 14). 13. No tibial tubercle exces sive lateralization. Tibial tubercle-trochlear groove distance: 15 mm. (normal less than 15-20 mm) 14. No lateral patellar tilt ing. Patellar tilt angle: 14 degrees. (normal less than 15 degrees) 15. Normal lateral trochlear inclination: 20 degrees. (normal greater than 11 degrees) 16. Patella orlin. Patellar height ratio: 1.5. (n ormal less than 1.3) 17. Intact patellar and quadriceps tendons. OTHER: 18. No fracture or marrow edema. 19. No joint effusion or popliteal cyst. IMPRESSION: 1. No meniscus tear. 2. Mild lateral patellar cho ndromalacia, trace inflammation in the infrapatellar fat-pad, and patella orlin. 3. Changes of prior lateral release. Thank you for referring your patient to [facility]. SL: [id number] Consultation Notes No Data Provided for This Section Discharge Summaries No Data Provided for This Section History and Physicals No Data Provided for This Section Vital Signs No Data Provided for This Section Encounters Location Location Encounter Encounter Reason Attending ADM [place] Stat Source Details Type Number For Provider Date Date Visit [facility] Outpt Diag [id number] Adam 06/20 06/21 [facility] [place] Procedures No Data Provided for This Section Assessment and Plan No Data Provided for This Section Plan of Care No Data Provided for This Section Social History Social History Date Source No data available for this 06/21/2016 [facility] [place] and section Family History No Data Provided for This Section Advance Directives No Data Provided for This Section Functional Status No Data Provided for This Section
--- NOTE | 2019-11-05 11:50 | EDPHYS ---
Physician Documentation [facility] Name: Naomi Hurt Age: 24 yrs Sex: Female : 1995 Arrival Date: 11/05/2019 Time: 10:41 Bed 11 Private MD: ED Physician Mando Karimi HPI: 11/04 11:44 This 24 yrs old Female presents to ER via Ambulatory with complaints of Sinus cp Congestion. 11:44 The patient or guardian reports nasal congestion. Onset: The symptoms/episode cp began/occurred for past few days. Severity of symptoms: in the emergency department the symptoms are unchanged, despite home interventions, has been taking NyQuil and tylenol. Associated signs and symptoms: Pertinent negatives: ear ache, sore throat, vomiting, headache, sinus pressure/congestion. Historical: - Allergies: 10:54 No Known Allergies; ss - Home Meds: 10:54 control [Active]; ss - PMHx: 10:54 None; ss - PSHx: 10:54 knee repair; ss - Immunization history:: Adult Immunizations up to date. - Social history:: Smoking status: Patient denies any tobacco usage or history of. ROS: 11:45 Eyes: Negative for injury, pain, redness, and discharge. cp 11:45 Constitutional: Negative for body aches, chills, fever. 11:45 ENT: Positive for nasal congestion, Negative for drainage from ear(s), ear pain, Teeth pain rhinorrhea, sinus pain, sore throat. 11:45 Cardiovascular: Negative for chest pain, palpitations. 11:45 Respiratory: Negative for cough, shortness of breath, wheezing. 11:45 Abdomen/GI: Negative for abdominal pain, nausea, vomiting, and diarrhea. 11:45 Skin: Negative for rash. 11:45 Neuro: Negative for dizziness, headache. 11:45 All other systems are negative. Exam: 11:47 Head/Face: Normocephalic, atraumatic. cp 11:47 Constitutional: The patient appears in no acute distress, alert, awake, non-toxic, well developed, well nourished. 11:47 Eyes: Periorbital structures: appear normal, Conjunctiva: normal, no exudate, no injection, Lids and lashes: appear normal, bilaterally. 11:47 ENT: External ear(s): are unremarkable, Ear canal(s): are normal, clear, TM's: bulging, is not appreciated, bilaterally, dullness, bilaterally, erythema, is not appreciated, bilaterally, Nose: is normal, Mouth: Lips: moist, Oral mucosa: pink and intact, moist, Posterior pharynx: is normal, airway is patent, no erythema, no exudate. 11:47 Chest/axilla: Inspection: normal. 11:47 Cardiovascular: Rate: normal, Rhythm: regular. 11:47 Respiratory: the patient does not display signs of respiratory distress, Respirations: normal, no use of accessory muscles, no retractions, labored breathing, is not present, Breath sounds: are clear throughout, no decreased breath sounds, no stridor, no wheezing. Vital Signs: 10:53 BP 141 / 92; Pulse 91; Resp 17; Temp 98.9(TE); Pulse Ox 98% on R/A; Weight 81.65 kg; ss Height 5 ft. 0 in. (152.40 cm); Pain 0/10; 10:53 Body Mass Index 35.15 (81.65 kg, 152.40 cm) ss MDM: 11:35 Patient medically screened. nelia 11:45 Differential Diagnosis: Sinusitis Otitis Media Allergic Rhinitis Viral Syndrome. cp 11:48 Data reviewed: vital signs, nurses notes, and as a result, I will discharge patient. cp 11:49 Counseling: I had a detailed discussion with the patient and/or guardian regarding: the cp historical points, exam findings, and any diagnostic results supporting the discharge/admit diagnosis, to return to the emergency department if symptoms worsen or persist or if there are any questions or concerns that arise at home. Administered Medications: No medications were administered Disposition: 11/05/19 11:49 Discharged to Home. Impression: Nasal congestion. - Condition is Stable. - Discharge Instructions: Nasal Allergies. - Prescriptions for Zyrtec- D 5-120 mg Oral Tablet Sustained Release 12 hr - take 1 tablet by ORAL route every 12 hours As needed; 20 tablet. - Medication Reconciliation Form, Thank You Letter, Antibiotic Education, Prescription Opioid Use form. - Follow up: Private Physician; When: 1 week; Reason: Worsening of condition. - Problem is new. - Symptoms have improved. Addendum: 11/06/2019 13:22 Co-signature as Attending Physician, Mando Karimi MD I agree with the assessment and c yousif plan of care. Signatures: Mando Karimi MD MD cha Smirch, Shelby, RN RN ss Mando Hartmann PA PA cp Corrections: (The following items were deleted from the chart) 11/04 11:57 11:49 11/05/2019 11:49 Discharged to Home. Impression: Nasal congestion. Condition is ss Stable. Forms are Medication Reconciliation Form, Thank You Letter, Antibiotic Education, Prescription Opioid Use. Follow up: Private Physician; When: 1 week; Reason: Worsening of condition. Problem is new. Symptoms have improved. cp
--- NOTE | 2019-11-05 11:50 | ER ---
Nurse's Notes [facility] Name: Naomi Hurt Age: 24 yrs Sex: Female : 1995 Arrival Date: 11/05/2019 Time: 10:41 Bed 11 Private MD: Diagnosis: Nasal congestion Presentation: 11/04 10:53 Chief complaint: Patient states: sinus congestion x 2 days. Coronavirus screen: Proceed ss with normal triage. Patient denies a cough. Patient denies shortness of breath or difficulty breathing. Patient denies measured and/or subjective temperature greater than 100.4F prior to today's visit. Patient denies travel on a cruise ship or to a country the [facility] currently lists as an affected area. Patient denies contact with known and/or suspected case of COVID-19. Ebola Screen: Patient denies exposure to infectious person. Patient denies travel to an Ebola-affected area in the 21 days before illness onset. Initial Sepsis Screen: Does the patient meet any 2 criteria? No. Patient's initial sepsis screen is negative. Does the patient have a suspected source of infection? No. Patient's initial sepsis screen is negative. Risk Assessment: Do you want to hurt yourself or someone else? Patient reports no desire to harm self or others. Onset of symptoms was November 03, 2019. 10:53 Method Of Arrival: Ambulatory ss 10:53 Acuity: MANDEEP 5 ss Historical: - Allergies: 10:54 No Known Allergies; ss - Home Meds: 10:54 control [Active]; ss - PMHx: 10:54 None; ss - PSHx: 10:54 knee repair; ss - Immunization history:: Adult Immunizations up to date. - Social history:: Smoking status: Patient denies any tobacco usage or history of. Screenin:30 Abuse screen: Denies threats or abuse. Denies injuries from another. Nutritional ss screening: No deficits noted. Tuberculosis screening: Never had TB. Fall Risk None identified. Assessment: 11:30 General: Appears in no apparent distress. comfortable, Behavior is calm, cooperative. ss Pain: Denies pain. Neuro: Level of Consciousness is awake, alert, obeys commands. Cardiovascular: Capillary refill < 3 seconds is brisk in bilateral fingers. Respiratory: Airway is patent Respiratory effort is even, unlabored, Respiratory pattern is regular, symmetrical. GI: Patient currently denies diarrhea, nausea, vomiting. : No signs and/or symptoms were reported regarding the genitourinary system. EENT: Nares are clear Oral mucosa is moist. Throat is clear. EENT: Reports nasal congestion. Derm: Skin is intact, is healthy with good turgor, Skin is dry, Skin is pink, warm \T\ dry. normal. Musculoskeletal: Circulation, motion, and sensation intact. Range of motion: intact in all extremities, Swelling absent. Vital Signs: 10:53 BP 141 / 92; Pulse 91; Resp 17; Temp 98.9(TE); Pulse Ox 98% on R/A; Weight 81.65 kg; ss Height 5 ft. 0 in. (152.40 cm); Pain 0/10; 10:53 Body Mass Index 35.15 (81.65 kg, 152.40 cm) ED Course: 10:41 Patient arrived in ED. ag5 10:54 Triage completed. 10:54 Arm band placed on right wrist. 11:30 Mando Hartmann PA is PHCP. cp 11:30 Mando Karimi MD is Attending Physician. cp 11:30 Patient has correct armband on for positive identification. Bed in low position. Call ss light in reach. 11:56 Eli Scott RN is Primary Nurse. 11:57 No provider procedures requiring assistance completed. Patient did not have IV access ss during this emergency room visit. Administered Medications: No medications were administered Outcome: 11:49 Discharge ordered by . cp 11:57 Discharged to home ambulatory. 11:57 Condition: good 11:57 Discharge instructions given to patient, Instructed on discharge instructions, follow up and referral plans. medication usage, Demonstrated understanding of instructions, follow-up care, medications, Prescriptions given X 1. 11:57 Patient left the ED. Signatures: Eli Scott RN RN Mando Hartmann PA PA cp Gaskin, Ajare ag5
[2019-11-05 12:10] VITALS: BP 141/92; TEMP 98.9; O2SAT 98
== END 2019-11-05 11:57 | disposition home or self-care (01) ==
LOC: ER 10:40
DX: R09.81 Nasal congestion (principal)
CPT/HCPCS: 99282

== ENCOUNTER 2022-10-06 02:18 | Observation (INO) | payer OTHER ==
--- OUTSIDE RECORDS SUMMARY | 2022-10-06 02:22 | XMS REPORT | Continuity of Care Document ---
:1995 Author Organization [facility] t Address [address] [place] [address] [place] [id number] Care Team Providers Name Role Phone PCP, PATIENT DOES NOT HAVE A Primary Care Physician Unavaila MOUNA Chen Attending Clinician Unavailable Mouna Han MD Attending Clinician NILDA ZUNIGA Attending Clinician Unavailable Nilda Zuniga MD Attending Clinician Mabel Villa Attending Clinician Unavailable Steve Attending Clinician Unavailable JOSE SCHUMACHER Attending Clinician Unavailable JOÃO ABRAHAM Attending Clinician Unavailable Adam Sandoval Attending Clinician MOUNA HAN Admitting Clinician Unavailable NILDA ZUNIGA Admitting Clinician Unavailable Mabel Villa Admitting Clinician Unavailable Steve Admitting Clinician Unavailable Payers Payer Name Policy Type Policy Number Effective Date Expiration Date S ana CIGNA II [id number] 2022 00:00:00 [facility] HEALTH/PPO 2 [id number] 2021 00:00:00 [facility] [id number] 2016 PPO/POS II 00:00:00 [facility] [id number] 2018 00:00:00 Problems Condition Condition Condition Status Onset Resolution Last Treating Co mments Source Name Details Category Date Date Treatment Clinician Date M25.561 - M25.561 - Diagnosis Active 2016-06-20 Memoria PAIN IN PAIN IN 06-09 06:32:00 l RIGHT KNEE RIGHT KNEE 00:01: He rmann Active 00 06/09/2016 MH OPID [place] Allergies, Adverse Reactions, Alerts Allergy Allergy Status Severity Reaction(s) Onset Inactive Treating Comm ents Source Name Type Date Date Clinician latex DA Active MO RASH [facility] 3-19 [facility] 00[facility] 00 l [facility] No Known DA Active U [facility] Allergie 2-23 [facility] s 00:00: Hosp[facility] 00 l [facility] NO KNOWN Drug Active Univers ALLERGIE Class ity of S [facility] Social History Social Habit Start Date Stop Date Quantity Comments Source Exposure to 2022-09-16 2022-09-26 Not sure [facility] SARS-CoV-2 (event) 00:00:00 21:35:00 Medica l Branch Alcohol intake 2022-09-26 2022-09-26 0 /d [facility] 00:00:00 00:00:00 [facility] Sex Assigned At [birth year] [facility] 00:00:00 00:00:00 [facility] Smoking Status Start Date Stop Date Source Never smoked tobacco [facility] Medications Ordered Filled Start Stop Current Ordering Indication Dosage Frequency Signature Comments Components Source Medication Medication Date Date Medication? Clinician (SIG) Name Name NaCl 0.9% 2022- No 1000mL at 999 Uni vers (NS) bolus 5-10 05-10 mL/hr, ity of infusion 03:30: 05:22 1,000 mL, Rol[place] as 1,000 mL 00 :00 IV Medical InfusionTashia ONCE, 1 dose, On Sun09/26/22 at 2230, PAULINE ondansetron 2022- No 4mg 4 mg, Slow Univers (ZOFRAN 5-10 05-10 IV Push, ity of (PF)) 02:45: 03:12 ONCE, 1 [place] injection 4 00 :00 dose, On Medi nicole mg Sun23 Branch at 2145, PAULINE morpHINE (4 2022- No 4mg 4 mg, Slow Univers mg/mL) 5-10 05-10 IV Push, ity of injection 4 02:45: 03:13 ONCE, 1 [place] mg 00 :[place] dose, On Medical Sun09/26/22 Branch at 2145, STAT maalox:diph 2022- No 15mL 15 mL, Uni vers enhydrAMINE 5-10 05-10 Oral, ity of :lidocaine 02:45: 03:03 ONCE, 1 [place] as 2 % viscous 00 :00 dose, On Medi nicole 1:1:1 Sun09/26/22 Branch (FIRST-MOUT at 2145, HWASH BLM) Routine oral suspension 15 mL acetaminoph Yes [id number] 500mg Take 1 Univers en (TYLENOL 5-10 tablet by ity of EXTRA 00:00: mouth [place] STRENGTH) 00 every 8 Medical 500 mg (eight) Branch tablet hours as needed for Pain for up to 20 doses. ondansetron Yes [id number] 4mg Take 1 Univers 4 mg 5-10 tablet by ity of disintegrat 00:00: mouth [place] ing tablet 00 every 8 Medica l (eight) Branch hours as needed for Nausea and Vomiting (N/V) for up to 10 doses. polyethylen Yes [id number] 1{packe Take 1 Univers e glycol 5-10 t} Packet by ity of 3350 00:00: mouth [place] (MIRALAX) 00 every 4 Medical 17 gram (four) Branch powder hours as needed for Constipati on for up to 12 doses. famotidine 2022- Yes [id number] 20mg Take 1 Univers (PEPCID) 20 5-10 05-26 tablet by it y of mg tablet 00:00: 04:59 mouth in [place] as 00 :00 the Medical morning Branch and 1 tablet in the evening. Do all this for 30 doses. glycerin/mi 2022- Yes [id number] 225mL Insert 225 Univers neral oil, 5-10 05-11 mL into ity o f AGLO ENEMA, 00:00: 04:59 rectum Rol[place] as Enem 00 :00 once now Medical for 1 Branch dose. iopamidol 2022- No [id number] 80mL 80 mL, U nivers (ISOVUE 09-26 Intravenou ity o f 370-500 mL) 12:45: 11:49 s, ONCE, 1 [place] injection 00 :00 dose, On Medica l 80 mL [facility] 09/26/22 Branch at 0745, Routine FENTanyl PF 2022- No 50ug 50 mcg, Un hernesto (SUBLIMAZE 09-26 Slow IV ity o f (PF)) 12:30: 11:22 Push, [place] injection 00 :00 ONCE, 1 Medical 50 mcg dose, On Branch [facility] 09/26/22 at 0730, Routine ketorolac 2022- No 30mg 30 mg, Unive rs (TORADOL) 09-26 Slow IV ity of injection 12:30: 11:22 Push, [place] 30 mg 00 :00 ONCE, 1 Medical dose, On Branch [facility] 09/26/22 at 0730, Routine ondansetron 2022- No 4mg 4 mg, Slow Univers (ZOFRAN 09-26 IV Push, ity of (PF)) 11:30: 11:22 ONCE, 1 [place] injection 4 00 :00 dose, On Medi nicole mg 09/26/22 Branch at 0630, PAULINE sodium Yes 5mL 5 mL, Univers chloride 09-26 Intravenou ity o f (NS) 10:55: s, PRN, [place] injection 5 21 Starting Medi nicole mL on [facility] 09/26/22 at 0555, Until Discontinu ed, Routine, IV line flushing naproxen Yes [id number] 550mg Take 1 Un [place] sodium -09 tablet by ity of (ANAPROX 00:00: mouth in [facility]) 550 mg 00 the Medical tablet morning Branch and 1 tablet in the evening. Take with meals. naproxen Yes [id number] 550mg Take 1 Un [place] sodium -09 tablet by ity of (ANAPROX 00:00: mouth in [facility]) 550 mg 00 the Medical tablet morning Branch and 1 tablet in the evening. Take with meals. naproxen Yes 500mg Take 1 Tab Un hernesto (NAPROSYN) 1-06 by mouth 2 ity of 500 mg 00:00: (two) [place] tablet 00 times Medical daily with Branch meals. naproxen 2016-0 Yes 500mg Take 1 Tab Un hernesto (NAPROSYN) 1-06 by mouth 2 ity of 500 mg 00:00: (two) [place] tablet 00 times Medical daily with Branch meals. Immunizations Ordered Filled Immunization Date Status Comments [facility] e Immunization Name Name SARS-COV-2 COVID-19 2020-09-15 Completed Unive rsity of MODERNA 12+ YRS 00:00:00 [place] Med ical VACCINE Branch SARS-COV-2 COVID-19 2020-09-15 Completed Unive rsity of MODERNA 12+ YRS 00:00:00 [place] Med ical VACCINE Branch SARS-COV-2 COVID-19 2020-08-18 Completed Unive rsity of MODERNA 12+ YRS 00:00:00 [facility] ical VACCINE Branch SARS-COV-2 COVID-19 2020-08-18 Completed Unive rsity of MODERNA 12+ YRS 00:00:00 [facility] ical VACCINE [place] Vital Signs Vital Name Observation Time Observation Value Comments Source Systolic blood 2022-09-27 05:00:00 109 mm[Hg] Univer sity of pressure [facility] Diastolic blood 2022-09-27 05:00:00 63 mm[Hg] Unive rsity of pressure [facility] Heart rate 2022-09-27 05:00:00 62 /min [facility] Respiratory rate 2022-09-27 05:00:00 14 /min [facility] Oxygen saturation in 2022-09-27 05:00:00 100 /min [facility] Arterial blood by [facility] Pulse oximetry [place] Body temperature 2022-09-27 02:34:00 37 Bailey [facility] Body height 2022-09-27 02:34:00 152.4 cm [facility] Body weight 2022-09-27 02:34:00 83.915 kg [facility] BMI 2022-09-27 02:34:00 36.13 kg/m2 [facility] Systolic blood 2022-09-26 12:52:00 121 mm[Hg] Univer sity of pressure [place] [facility] Diastolic blood 2022-09-26 12:52:00 87 mm[Hg] [facility] [place] Heart rate 2022-09-26 12:52:00 48 /min [facility] Respiratory rate 2022-09-26 12:52:00 10 /min [facility] Oxygen saturation in 2022-09-26 12:52:00 100 /min [facility] Arterial blood by [facility] Pulse oximetry [place] Body temperature 2022-09-26 11:00:00 35.89 Bailey [facility] Body height 2022-09-26 11:00:00 152.4 cm [facility] Body weight 2022-09-26 11:00:00 83.915 kg [facility] BMI 2022-09-26 11:00:00 36.13 kg/m2 [facility] Procedures Procedure Date / Time Performed Performing Clinician Sourc e XR ABDOMEN ACUTE 2022-09-27 03:48:25 Mouna Han [facility] TROPONIN I 2022-09-27 03:10:00 Mouna Han [facility] COMP. METABOLIC PANEL 2022-09-27 03:10:00 Mouna Han [facility] ([id number]) [facility] CBC WITH DIFF 2022-09-27 03:10:00 Mouna Han [facility] LACTIC ACID WHOLE 2022-09-27 03:09:00 Mouna Han [facility] CONSENT/REFUSAL FOR 2022-09-27 02:57:33 Doctor Unassigned, No Un [facility] DIAGNOSIS AND Name Medical Branch TREATMENT CT ABDOMEN PELVIS W 2022-09-26 11:50:54 Nilda Zuniga [facility] CONTRAST [facility] Branch LIPASE 2022-09-26 10:58:00 Nilda Zuniga [facility] COMP. METABOLIC PANEL 2022-09-26 10:58:00 [facility] ([id number] CBC WITH DIFF 2022-09-26 10:58:00 Nilda Zuniga [facility] URINALYSIS 2022-09-26 10:58:00 Nilda Zuniga [facility] POCT TEST 2022-09-26 10:57:00 Nilda Zuniga [facility] NOTICE OF PRIVACY 2022-09-26 10:47:58 Doctor Unassigned, No Univ [facility] PRACTICES Name [facility] CONSENT/REFUSAL FOR 2022-09-26 10:46:53 [facility] Name [facility] TREATMENT [id number] 2022-08-06 00:00:00 [facility] [id number] 2022-08-06 00:00:00 [facility] [id number] 2022-08-06 00:00:00 [facility] [id number] 2022-08-06 00:00:00 [facility] [id number] 2022-08-06 00:00:00 [facility] Encounters Start End Encounter Admission Attending Care Care Encounter Source Date/Time Date/Time Type Type Clinicians Facility Department ID 2022-09-26 2022-09-27 Emergency X [facility] ERT [id number] Univers 21:36:00 00:38:00 MOUNA [facility] 2022-09-26 2022-09-27 Emergency [facility] [id number] Univers 21:36:00 00:38:00 Mouna TAYLOR 350.1.13.10 i ty Ashish LANDA 4.2.7.2.686 [facility] [id number] [place] [id number] Branch 2022-09-26 2022-09-26 Emergency X [facility] ERT [id number] Univers 05:49:00 07:56:00 NILDA [facility] 2022-09-26 2022-09-26 Emergency [facility] [id number] Univers 05:49:00 07:56:00 Nilda TAYLOR 350.1.13.10 [facility] 4.2.7.2.686 [facility] [id number] [place] [id number] Branch 2022-08-05 2022-08-08 Inpatient EM CATIE Villa OBPP [id number] [facility] 17:59:00 16:47:00 Mabel 42 [facility] 2022-07-13 2022-07-14 Emergency EM Allen [facility] JASPER [id number] [facility] 22:45:00 03:00:00 aMbel 05 [facility] 2022-05-16 2022-05-16 Outpatient FOG_Burke_R AOSM AOSM [id number] Sumi 00:00:00 00:00:00 Eliza [id number] [facility] 2021-12-12 2021-12-12 Outpatient CARMEN SCHUMACHER [id number] Carmen 00:00:00 00:00:00 JOSE Seybol d 2021-06-17 2021-06-17 Outpatient [facility] [id number] Univers 13:45:00 13:45:00 [id number] [facility] 2020-09-15 2020-09-15 Outpatient Sterling ABRAHAM [facility] [id number] Univers 14:40:00 14:40:00 JOÃO [facility] 2020-08-18 2020-08-18 Outpatient [facility] [id number] Univers 14:40:00 14:40:00 [facility] 2016-06-20 2016-06-21 Outpt Diag nullFlavo [facility] [id number] Memoria 12:20:00 05:59:00 Services r Outpatient 00 l Imaging Raymundo Maceo 2016-06-20 2016-06-21 Outpt Diag nullFlavo [facility] [id number] Memoria 12:20:00 05:59:00 Services r Outpatient 00 l Imaging Raymundo Maceo 2016-06-20 2016-06-20 Outpatient YENY Sandoval OIP [id number] 06:20:00 23:59:00 Adam Kevin 00 Results Test Description Test Time Test Comments Results Result Comments Source Complete Metabolic Panel 2022-09-26 11:18:31 Test Item Value Reference Range Interpretation Comme nts NA (test code = 5884750757) 143 mmol/L 135-145 K (test code = 9664962402) 3.8 mmol/L 3.5-5.0 CL (test code = 1751569740) 107 mmol/L 98-108 CO2 TOTAL (test code = 27 mmol/L 23-31 4419202582) AGAP (test code = 3318628619) 9 2-16 BUN (test code = 9088030842) 17 mg/dL 7-23 GLUCOSE (test code = 9770488946) 96 mg/dL 70-110 CREATININE (test code = 0.70 mg/dL 0.50-1.04 2408128729) TOTAL BILI (test code = 0.4 mg/dL 0.1-1.6 8764343397) CALCIUM (test code = 4675274228) 8.9 mg/dL 8.6-10.6 T PROTEIN (test code = 7.4 g/dL 6.3-8.2 7979105365) ALBUMIN (test code = 6626855627) 4.3 g/dL 3.5-5.0 ALK PHOS (test code = 6095755168) 101 U/L 34-122 ALTv (test code = 1742-6) 34 U/L 5-35 AST(SGOT) (test code = 27 U/L 13-40 6370433374) eGFR (test code = 8040108972) 101.1 mL/min/1.73m2 LULI (test code = LULI) Association of Glomerular Filtration Rate (GFR) and Staging of Kidney Disease* + +--------- + ----+| GFR (mL/min/1.73 m2) ?| With Kidney Damage ?| ?Without Kidney Damage+ +--- + +| ?>90 ?| ?Stage one ?| ? Normal ?+ +-------- + -----+| ?60-89 ?| ?Stage two ?| ? Decreased GFR ? + +--------- + ----+| ?30-59 ?| ?Stage three ?| ? Stage three ? + +--------- + ----+| ?15-29 ?| ?Stage four ? | ? Stage four ?+ +-------- + -----+| ?<15 (or dialysis) ? ?| ?Stage five ? | ? Stage five ?+ +-------- + -----+ *Each stage assumes the associated GFR level has been in effect for at least three months. ?Stages 1 to 5, with or without kidney disease, indicate chronic kidney disease. Notes: Determination of stages one and two (with eGFR >59mL/min/1.73 m2) requires estimation of kidney damage for at least three months as defined by structural or functional abnormalities of the kidney, manifested by either:Pathological abnormalities or Markers of kidney damage (including abnormalities in the composition of the blood or urine or abnormalities in imaging tests). [facility], [id number] 11:17:55 Test Item Value Reference Range Interpretation Comments LIPASE (test code = 2065634948) 130 U/L 0-220 Lab Interpretation (test code = Normal 38358-2) [facility] with [id number] 11:03:51 Test Item Value Reference Range Interpretation Comments WBC (test code = 7.70 See_Comment [Automated 8877-2) message] The sy stem which generated this result transmitted reference range : 4.30 - 11.10 10*3/?L. The reference range was not used to interpret this result as normal/abnormal . RBC (test code = 4.31 See_Comment [Automated 460-8) message] The sy stem which generated this result transmitted reference range : 3.93 - 5.25 10*6/?L. The reference range was not used to interpret this result as normal/abnormal . HGB (test code = 10.2 g/dL 11.6-15.0 L 718-7) HCT (test code = 33.6 % 35.7-45.2 L 4544-3) MCV (test code = 78.0 fL 80.6-95.5 L 787-2) MCH (test code = 23.7 pg 25.9-32.8 L 785-6) MCHC (test code = 30.4 g/dL 31.6-35.1 L 786-4) RDW-SD (test code = 42.6 fL 39.0-49.9 15780-1) RDW-CV (test code = 15.0 % 12.0-15.5 788-0) PLT (test code = 299 See_Comment [Automated 777-3) message] The sy stem which generated this result transmitted reference range : 166 - 358 10*3/ ?L. The reference r sotero was not used to interpret this result as normal/abnormal . MPV (test code = 12.7 fL 9.5-12.9 11358-0) NRBC/100 WBC (test 0.0 See_Comment [Automat ed code = 9099152620) message] The system which generated this result transmitted reference range : 0.0 - 10.0 /100 WBCs. The refer ence range was not u sed to interpret th is result as normal/abnormal . NRBC x10^3 (test code See_Comment [Auto mated = 6363394047) message] The s ystem which generated this result transmitted reference range : 10*3/?L. The reference range was not used to interpret this result as normal/abnormal . GRAN MAT (NEUT) % 51.4 % (test code = 770-8) IMM GRAN % (test code 0.60 % = 4358572674) LYMPH % (test code = 39.5 % 736-9) MONO % (test code = 6.2 % 5905-5) EOS % (test code = 1.8 % 713-8) BASO % (test code = 0.5 % 706-2) GRAN MAT x10^3(ANC) 3.95 10*3/uL 1.88-7.09 (test code = 5874552060) IMM GRAN x10^3 (test 0.05 10*3/uL 0.00-0.06 code = 4294925368) LYMPH x10^3 (test code 3.04 10*3/uL 1.32-3.29 = 731-0) MONO x10^3 (test code 0.48 10*3/uL 0.33-0.92 = 742-7) EOS x10^3 (test code = 0.14 10*3/uL 0.03-0.39 711-2) BASO x10^3 (test code 0.04 10*3/uL 0.01-0.07 = 704-7) Lab Interpretation Abnormal (test code = 67742-6) [facility] [id number] 10:57:00 Test Item Value Reference Range Interpretation Comments POCT PREG (test code = 1605) Negative On board controls acceptable with Present C Line (test code = 3574) POCT PREG LOT # (test code = 3575) [id number] POCT PREG TEST DATE (test 12/27/2023 code = 3576) Lab Interpretation (test code = Normal 33791-6) [facility] [id number] 05:48:00 Test Item Value Reference Range Interpretation Comments HEMOGLOBIN (test code = HGB) 8.9 g/dL 10.1-13.8 L HEMATOCRIT (test code = HCT) 28.2 % 32.5-41.8 L AG HEPATITIS B [id number] 20:18:00 Test Item Value Reference Range Interpretation Comments AG HEPATITIS B SURFACE (test code NONREACTIVE NONREACTIVE = HBSAG) AB HEPATITIS C [id number] 20:18:00 Test Item Value Reference Range Interpretation Comments AB HEPATITIS C (test code = NONREACTIVE NONREACTIVE HCVAB) SIGNAL TO CUTOFF (test code = 0.03 <0.80 N CUTOFF) AB [id number] 20:18:00 Test Item Value Reference Range Interpretation Comments AB TREPONEMA (test code = TREPAB) NONREACTIVE NONREACTIVE AB HIV 1 20:18:00 Test Item Value Reference Range Interpretation Comments AB HIV 1 2 (test NONREACTIVE NONREACTIVE [facility] = ZIF68VW) 4th Gen HIV Ag/Ab Combo Screen CBC W/AUTO [id number] 18:27:00 Test Item Value Reference Range Interpretation Comments WHITE BLOOD CELL (test code = WBC) 10.4 K/mm3 6.5-12.3 N RED BLOOD CELL (test code = RBC) 4.13 M/mm3 3.51-4.69 N HEMOGLOBIN (test code = HGB) 11.2 g/dL 10.1-13.8 N HEMATOCRIT (test code = HCT) 35.1 % 32.5-41.8 N MEAN CELL VOLUME (test code = MCV) 85.0 fL 84.6-96.6 N MEAN CELL HGB (test code = MCH) 27.1 pg 27.3-33.9 L MEAN CELL HGB CONCETRATION (test 31.9 gm/dL 32.0-34.2 L code = MCHC) RED CELL DISTRIBUTION WIDTH (test 15.6 % 12.2-16.3 N code = RDW) PLATELET COUNT (test code = PLT) 170 K/mm3 134-363 N MEAN PLATELET VOLUME (test code = 13.2 fL 9.2-12.7 H MPV) NEUTROPHIL % (test code = NT%) 80.3 % 57.9-77.3 H LYMPHOCYTE % (test code = LY%) 14.1 % 14.5-29.7 L MONOCYTE % (test code = MO%) 4.8 % 3.6-10.2 N EOSINOPHIL % (test code = EO%) 0.4 % 0.0-3.0 N BASOPHIL % (test code = BA%) 0.1 % 0.1-0.9 N NEUTROPHIL # (test code = NT#) 8.3 K/mm3 LYMPHOCYTE # (test code = LY#) 1.5 K/mm3 MONOCYTE # (test code = MO#) 0.5 K/mm3 EOSINOPHIL # (test code = EO#) 0.04 K/mm3 BASOPHIL # (test code = BA#) 0.0 K/mm3 RBC MORPHOLOGY REQUIRED (test code NORMAL NORMAL = RBCM) PLATELET MORPHOLOGY REQUIRED (test NORMAL NORMAL code = PLTMR) RUPTURE OF [id number] 18:19:00 Test Item Value Reference Range Interpretation Comments RUPTURE OF MEMBRANES RUPTURED Previou sly reported (test code = ROM) result: NO N-RUPTURED Edited by: [id number] on 23:1818CO RRECT RESULT\\CALLED M CELIA HODGE RNROM pr ev. reported as:NON-RUPTURED . . RUPTURE OF [id number] 16:43:00 Test Item Value Reference Range Interpretation Comments RUPTURE OF MEMBRANES (test code NON-RUPTURED = ROM) URINALYSIS [id number] 01:55:00 Test Item Value Reference Range Interpretation Comments UA COLOR (test code = COLU) STRAW YELLOW UA APPEARANCE (test code = CLEAR CLEAR APPU) UA GLUCOSE DIPSTICK (test code 3+ NEG A = DGLUU) UA BILIRUBIN DIPSTICK (test NEGATIVE NEG code = BILU) UA KETONE DIPSTICK (test code NEGATIVE NEG = KETU) UA SPECIFIC GRAVITY (test code 1.005 1.001-1.035 N = SGU) UA BLOOD DIPSTICK (test code = NEG NEG AMBER) UA PH DIPSTICK (test code = 6.0 5-9 DAVID) UA PROTEIN DIPSTICK (test code NEGATIVE NEG = PROU) UA UROBILINIOGEN DIPSTICK NEGATIVE mg/dL NEG (test code = URO) UA NITRITE DIPSTICK (test code NEG NEG = LISETTE) UA LEUKOCYTE ESTERASE DIPSTICK NEG NEG (test code = LEUU) UA WBC (test code = WBCU) 0-2 #/hpf NONE SEEN UA EPITHELIAL CELLS (test code RARE #/HPF RARE-FEW = EPIU) UA BACTERIA (test code = BACU) RARE /HPF RARE-FEW URINE SAMPLE: CLEAN CATCHRUPTURE OF [id number] 00:16:00 Test Item Value Reference Range Interpretation Comments RUPTURE OF MEMBRANES (test code NON-RUPTURED = ROM) Notes Date/Time Note Provider Source 2022-08-08 10:21:00-00:00 [facility] OB Disch REPORT#:[id number] REPORT STATUS: Signed DATE:08/08/22 TIME: 1021 PATIENT: YAKOV TRENT UNIT #: [id number] ROOM/BED: : 96 AGE: 27 SEX: F ATTEND: Adryan Villa MD ADM AUTHOR: Mabel Villa MD * ALL edits or amendments must be made on the [employer] document * Subjective Subjective Admission EGA: Weeks: 39 Days: 4 EGA at delivery (wks/days): 39 weeks (5 days) Status/day: post operative (day 1) Patient reports: Patient reports: No: complaints. Objective General VS: Last Documented: Result Date Time B/P 107/65 08/08 737 B/P Mean 78.8 08/08 07 Temp 97.7 08/08 07 Pulse 109 08/08 0738 Resp 18 08/08 07 Pulse Ox 95 08/07 0215 PATIENT WEIGHT: Weight (lb): 221 Weight (oz): 15.26 Weight (kg): 100.500 Physical Exam Cardiac: normal rhythm Lungs: unlabored breathing Neuro: Exam: alert, oriented x3, normal speech Incision site: well approximated edges, dressing clean dry Lower extremities: Edema: none Discharge Summary General Free Text A P: 27 yo s/p pLTCS at 39w4d (PROM>AOL) 1. POD#2 - meeting milestones, vssaf 2. Acute blood loss anemia - hgb 11.2 > 8.9, no pph - no s/sx anemia, for po iron 3. PMH: denies 4. PSH: Right knee surgery, CS x1 5. Rh+, MMRI, , GBS neg 6. Baby girl "Lena" at bedside. Pediatrix for delivery 7. DC home today, pod 2, f/u in office in 2w, re v'd removal of FRANSICO dressing Assessment: nml progress, acute blood loss anemia Admission diagnosis: PROM-term Hospital course: primary LTCS in labor Procedures: primary CS delivery Discharge condition: stable Discharge to: Home/Self Care Discharge diagnosis: full-term uncomp delivery Discharge management: greater than 30 mins Time spent: >50% spent on counseling/coordination of care: yes Baby A: status: live born Gender: female 1 minute: 8 5 minutes: 9 Plan: routine care Discharge Instructions Additional discharge routines: PCP Follow-Up Discharge meds: Continue taking these medications: PNV WITH CA/IRON/FA/DHA (PRENATE ESSENTIAL) 28 M G IRON-1 MG-300 MG CAP PNV WITH FE FUMARATE/FA () 27 MG IRON-80 0 MCG TAB 1 TABLET ORAL DAILY. IRON (IRON) 18 MG TAB 18 MILLIGRAM ORAL DAILY. CALCIUM ACETATE (PHOSLO) 667 MG CAP CALCIUM CARBONATE (TUMS) 200 MG CALCIUM (500 MG) TAB.CHEW Start taking the following new medications: IBUPROFEN (MOTRIN) 600 MG TAB 600 MILLIGRAM ORAL EVERY 6 HOURS NEEDED. as needed for PAIN SCALE 1-3 ( USE 1ST) Qty = 30 No Refills oxyCODONE (oxyCODONE) 5 MG TAB 5 MILLIGRAM ORAL EVERY 4 HOURS NEEDED. as ne eded for PAIN SCALE 4-6 Qty = 10 No Refills Electronically Signed by Mabel Villa MD on at 0834 RPT #:[id number] END OF REPORT 2022-08-07 14:44:00-00:00 [facility] ([facility]) OB Postpart Progr Note REPORT#:[id number] REPORT STATUS: Signed DATE:08/07/22 TIME: 1444 PATIENT: YAKOV TRENT UNIT #: [id number] ROOM/BED: : 96 AGE: 27 SEX: F ATTEND: Adryan Villa MD ADM AUTHOR: Lalitha Clifford MD * ALL edits or amendments must be made on the [employer] document * Subjective Subjective Admission EGA: Weeks: 39 Days: 4 EGA at delivery (wks/days): 39 weeks (5 days) Status/day: post operative (day 1) Patient reports: Patient reports: Yes: normal lochia, pain management effective, tolerating po well, voiding well, tolerating ambulation. No: complaints, sonia sea, vomiting, excessive bleeding, abdominal pain. Review of Systems All systems rev neg: except as marked Objective General VS: Vital Signs Date Temp Pulse Resp B/P B/P Mean Pulse Ox FiO2 08/06-08/07 97.8-98.9 81-141 17-31 103-144/53-78 76.0-100.0 93-100 Last Documented: Result Date Time B/P 114/70 08/07 1210 Temp 98.1 08/07 1210 Pulse 90 08/07 1210 Resp 20 08/07 1210 B/P Mean 84.0 08/07 0215 Pulse Ox 95 08/07 0215 PATIENT WEIGHT: Weight (lb): 221 Weight (oz): 15.26 Weight (kg): 100.500 Medications: Active Meds + DC'd Last 24 Hrs Ibuprofen (IBUPROFEN 600 MG TAB) 600 MG Q6H PRN PRN PO Acetaminophen (ACETAMINOPHEN 325 MG TAB) 650 MG Q6H PRN PRN PO Docusate Sodium (DOCUSATE SODIUM 100 MG CAP) 200 MG BEDTIME PO Oxycodone HCl (OXYIR 5MG TAB) 5 MG Q4H PRN PRN P O Oxycodone HCl (Oxycodone HCl 10 MG IR) 10 MG Q4H PRN PRN PO Multivit/Folic Acid/Iron ( Xochilt min Tablet) 1 TAB DAILY PO Neomycin/Polymyxin/Bacitracin (TRIPLE ANTIBIOTIC 0.94 GM) 1 APPLIC BID PRN TOPICAL Bupivacaine HCl (BUPIVACAINE HCL 0.25%) 10 ML .S TK-MED ONE ZCHARGE (DC) Lidocaine/Epinephrine (XYLOCAINE 2%-EPI 1:200,00 0 - 20 ML PF) 20 ML .STK-MED ONE ZCHARGE (DC) Ondansetron Base (ZOFRAN ODT 4MG) 4 MG Q6H PRN P RN PO Ondansetron HCl (ZOFRAN 2 MG/ML 4 MG SYR) 4 MG Q 6H PRN PRN IV Ibuprofen (IBUPROFEN 600 MG TAB) 600 MG Q6H PO Acetaminophen (ACETAMINOPHEN 325 MG TAB) 650 MG Q6H PO Al Hydrox/Mg Hydrox/Simethicone (MYLANTA 30 ML S CHCF) 30 ML ASDIR PRN PO Dextrose/Lactated Ringer's (DEXTROSE 5% IN LACTA KRIS RINGERS 1000 ML) 1,000 ML ASDIR IV (DC) Diphtheria/Pertussis/Tetanus Vacc (ADACEL VACCIN E) 0.5 ML ASDIR IM Hydralazine HCl (hydrALAZINE HCL 20MG) 10 MG ASD IR PRN IV Hydrocortisone (HYDROCORTISONE 1% TOP CREAM 30 G M) 1 APPL ASDIR PRN TOPICAL Hydrocortisone/Pramoxine (ANALPRAM HC 2.5% CRM S INGLES) 1 GM ASDIR PRN RECTAL (CKD) Hydroxyzine HCl (ATARAX) 25 MG Q6H PRN PRN PO Labetalol HCl (NORMODYNE 100 MG/20 ML VIAL) 20 M G ONCE PRN IV Labetalol HCl (NORMODYNE 100 MG/20 ML VIAL) 40 M G ASDIR PRN IV Labetalol HCl (NORMODYNE 100 MG/20 ML VIAL) 80 M G ASDIR PRN IV Magnesium Hydroxide (MILK OF MAGNESIA 30 ML UD) 30 ML BID PRN PRN PO Measles/Mumps/Rubella Vaccine Live (M-M-R II VAC CINE W DILUENT) 0.5 ML BEFORE DISCHG PRN SUBQ Methylergonovine Maleate (METHERGINE 0.2 MG/ML 1 ML AMP) 0.2 MG ASDIR PRN IM Nalbuphine HCl (NALBUPHINE HCL 10 MG/ML 1 ML AMP ) 2 MG Q4H PRN PRN IV Nalbuphine HCl (NALBUPHINE HCL 10 MG/ML 1 ML AMP ) 4 MG Q4H PRN PRN IV Polyethylene Glycol (POLYETHYLENE GLYCOL PKT) 17 GM DAILY PRN PRN PO Promethazine HCl (PROMETHAZINE HCL) 25 MG Q6H IA N PRN PO Simethicone (SIMETHICONE 80 MG TAB) 80 MG PC HS PRN PRN PO Tranexamic Acid (Tranexamic Acid) 1,000 MG ASDIR PRN IV Sodium Chloride (SODIUM CHLORIDE 0.9% 100 mL MB P) 100 ML Acetaminophen (TYLENOL EXTRA STRENGTH) 1,000 MG PACU ONCE PRN PO (DC) Hydroxyzine HCl (ATARAX) 25 MG PACU ASDIR PRN IA N IM (DC) Ketorolac Tromethamine (TORADOL 15 MG VIAL) 15 M G PACU Q6H PRN PRN IV ( DC) Nalbuphine HCl (NALBUPHINE HCL 10 MG/ML 1 ML AMP ) 2 MG PACU ASDIR PRN PRN IV (DC) Naloxone HCl (NALOXONE HCL 0.4 MG/ML 1 ML VIAL) 0.4 MG PACU ONCE PRN PRN IV (DC) Ondansetron HCl (ZOFRAN 2 MG/ML 4 MG SYR) 4 MG P ACU ONCE PRN IV (DC) Promethazine HCl (PROMETHAZINE HCL 25 MG) 12.5 M G PACU ONCE PRN IM (DC) Fentanyl Citrate (SUBLIMAZE 2 ML) 0 .STK-MED ONE .ROUTE (DC) Dexamethasone Sodium Phosphate (Decadron 4 Mg/mL Inj) 0 .STK-MED ONE .ROUTE (DC) Fentanyl Citrate (SUBLIMAZE 2 ML) 0 .STK-MED ONE .ROUTE (DC) Ketorolac Tromethamine (TORADOL 30 MG SYRINGE) 0 .STK-MED ONE .ROUTE (DC ) Morphine Sulfate (Duramorph 5 MG/10 ML Ampule) 0 .STK-MED ONE .ROUTE (DC ) Oxytocin (Pitocin 10 units/1 mL Inj) 0 .STK-MED ONE .ROUTE (DC) Oxytocin/Sodium Chloride (Oxytocin 15 units/NS 2 50 mL) 250 ML TITRATE IV (DC) Calcium Carbonate (TUMS CHEWABLE TAB) 1,000 MG O NCE ONE PO (DC) Butorphanol Tartrate (STADOL 2 MG/ML 1 ML) 2 MG Q4H PRN PRN IV (DC) Oxytocin/Sodium Chloride (Oxytocin 15 units/NS 2 50 mL) 250 ML TITRATE IV (DC) Acetaminophen (TYLENOL EXTRA STRENGTH) 1,000 MG PREOP PRN PO (DC) Azithromycin (ZITHROMAX IV 500MG) 500 MG PREOP I V (DC) Sodium Chloride (SODIUM CHLORIDE 0.9% - 250 ML) 250 ML Carboprost Tromethamine (HEMABATE 250 MCG/ML AMP ) 250 MCG Q15M PRN PRN IM (DC) Cefazolin Sodium (ANCEF 2 GM VIAL) 2 GM PREOP IV (DC) Sodium Chloride (SODIUM CHLORIDE 0.9% 100 mL MB P) 100 ML Dextrose/Lactated Ringer's (DEXTROSE 5% IN LACTA KRIS RINGERS 1000 ML) 1,000 ML ASDIR IV (DC) Ephedrine Sulfate (ePHEDrine SULFATE 50 MG/ML 1M L AMP) 10 MG ASDIR PRN IV (DC) Fentanyl/Bupivacaine HCl (fentaNYL 2mcg/ml-BUPIV ACAINE 0.1% NS 0.9%-100) 100 ML ASDIR EPIDURAL (DC) Lactated Ringer's (LACTATED RINGERS) 250 ML ASDI R IV (DC) Lidocaine HCl (LIDOCAINE HCL 1% INJ 5 ML PF VIAL ) DIRECTED ONCE PRN IV (DC) Loperamide HCl (LOPERAMIDE HCL 2 MG CAP) 4 MG DIR PRN PO (DC) Methylergonovine Maleate (METHERGINE 0.2 MG/ML 1 ML AMP) 0.2 MG ASDIR PRN IM (DC) Misoprostol (CYTOTEC 200MCG TAB) 1,000 MCG ASDIR PRN RECTAL (DC) Omeprazole/Sodium Bicarbonate (ZEGERID 20 MG CAP SCOTT) 2 CAP PREOP PRN PO (DC) Ondansetron HCl (ZOFRAN 2 MG/ML 4 MG SYR) 4 MG Q 6H PRN PRN IV (DC) Ondansetron HCl (ZOFRAN 2 MG/ML 4 MG SYR) 4 MG P REOP PRN IV (DC) Oxytocin (Pitocin 10 units/1 mL Inj) 10 UNITS ON CE PRN IM (DC) Oxytocin/Sodium Chloride (Oxytocin 15 units/NS 2 50 mL) 250 ML ASDIR PRN IV (DC) Pharmacy Profile Note (EPIDURAL TRAY) 1 EA ASDIR MISC (DC) Promethazine HCl (PROMETHAZINE HCL 25 MG) 25 MG Q4H PRN PRN IM (DC) Scopolamine (TRANSDERM-SCOP PATCH) 1 MG PREOP IA N TRANSDERM (DC) Terbutaline Sulfate (TERBUTALINE 1 MG/ML 1 ML AM P) 0.25 MG ONCE PRN SUBQ (DC) Tranexamic Acid (Tranexamic Acid) 1,000 MG ASDIR PRN IV (DC) Sodium Chloride (SODIUM CHLORIDE 0.9% 100 mL MB P) 100 ML Loperamide HCl (LOPERAMIDE HCL 2 MG CAP) 2 MG Q4 H PRN PRN PO (DC) Physical Exam Breasts: Breasts: filling Cardiac: normal rhythm Lungs: unlabored breathing Neuro: Exam: alert, oriented x3, normal speech Abdomen: soft, no abnormal tenderness, no guardi ng Incision site: well approximated edges, dressing clean dry Uterus: firm, involution appropriate, non-tender Fundus: firm, below the umbilicus Lochia: normal Lower extremities: Edema: none Results Findings/data: Laboratory Tests: 08/07 0528 Hematology Hgb (10.1 - 13.8 g/dL) 8.9 L Hct (32.5 - 41.8 %) 28.2 L Diagnosis, Assessment Plan Diagnosis, Assessment Plan Free text A P: 27 yo s/p pLTCS at 39w4d (PROM>AOL) 1. POD#1 - meeting milestones, vssaf 2. Acute blood loss anemia - hgb 11.2 > 8.9, no pph - no s/sx anemia, for po iron 3. PMH: denies 4. PSH: Right knee surgery, CS x1 5. Rh+, MMRI, , GBS neg 6. Baby girl "Lena" at bedside. Pediatrix for delivery Dispo: routine post op care, anticipate d/c home POD#2-3 Assessment: nml progress, acute blood loss anemia Plan: routine care Plan discussed with: patient, spouse/partner, nu rse Electronically Signed by Lalitha Clifford MD on at 1448 RPT #:[id number] END OF REPORT 2022-08-06 21:13:00-00:00 [facility] ([facility]) OB Delivery Note REPORT#:[id number] REPORT STATUS: Signed DATE:08/06/22 TIME: 2112 PATIENT: YAKOV TRENT UNIT #: [id number] ROOM/BED: [address] : 96 AGE: 27 SEX: F ATTEND: Darrel Villa MD ADM AUTHOR: Mabel Villa MD * ALL edits or amendments must be made on the el ectronic/computer document * OB Delivery Nursing Documentation Review Nursing data: The data set between the solid lines has been im ported from nursing documentation. Any exceptions have been noted be low under Provider comments. _ ROM date: 08/05/22 ROM time: 1230 Membranes rupture method: SROM Amniotic fluid color: Clear Amniotic fluid amount: Steroids prior to arrival: Antibiotic prophylaxis given: Yes Post hemorrhage risk score: Medium Risk f or Hemorrhage. Delivery date infant A: Delivery time infant A: Birthweight (gm) A: Weight (lb) infant A: Weight (oz) A: Gender infant A: Female 1 minute infant A: 5 minutes A: 10 minutes A: Cord pH obtained A: Vacuum time infant A: Vacuum # pulls A: Vacuum # popoffs A: QBL at delivery: __ Provider comments on imported nursing data: [] Pre-delivery GBS status: GBS status: negative evaluation at delivery: NRP certified pe rsonnel Admission EGA: Weeks: 39 Days: 4 EGA at delivery (wks/days): 39 weeks (5 days) Blood Loss/Details Blood loss at delivery: <1K: no sx hypovol=no he m EBL at delivery (ml's): 700 Baby A Information Baby A information Delivery date: 08/06/22 Delivery time: 2313 status: live born Wt of baby (lbs/oz): 7.14 Gender: female 1 minute: 8 5 minutes: 9 Presentation: vertex ABG details Baby A Cord blood gases: not collected Nuchal cord Baby A Nuchal cord: no Operative Note-Full )(Start date: 08/06/22 )(Start time: 2309 )(Pre-procedure diagnosis: arrest of labor )(Post-procedure diagnosis: same as pre-procedur e dx )(Procedures performed: primary low transverse section )(Primary Surgeon: Mabel Villa MD )(Nursing Agency Manager(s): JANIE Willett )(Anesthesia: epidural anesthetic Indications: arrest of labor )(Operative findings: copious fluid in periteneal cavity c/w obstructe d labor, female infant in cephalic OP presentation vigorous immediately af ter delivery, narrow pelvic inlet with very prominent sacral promontory, lef t fimbria noted to be oozy following exteriorization of the uterus (made he mostatic with bovie) )(Complications: none )( Estimated blood loss (ml): 700 )(Specimens removed/altered: none Fluids: 1100 Urine output: 200, blood tinged at the start of case prior to incision Disposition: PACU, return to floor Counts: Sponge count: correct Instrument count: correct Needle count: correct Cottonoid count: correct Wound class: clean-contaminated Delivery Delivery section indication: prolonged latent phase Priority: indicated (add on) Decision to incision time: greater than 30 mins Antibiotic prior to incision: 1 dose )(SCDs applied activated: Yes Uterine incision: low transverse Consent: indication discussed, questions answer ed, pt consent to op delivery Mother's condition: mother stable Additional comments: After informed consent was o btained, the patient was taken to the operating room where anesthesia previously administed found to be adequate. She was then prepped and draped in sterile fashion in a dorsa l supine position with a leftward tilt. Pannus retractors applied. A time out procedure was then performed and the OR team agreed to the planned procedure. The patient s abdomen was then tested with an Allis clamp and anesthesia was found to be adequate. A Pfannenstiel skin incision was then made with the scalpel and carried down to the underlying fascia with the bovie. The bovie was then used to score the fascia in the midline and the incision was then extended laterally using Guillen scissors. The superior aspect of the fascial inc ision was then grasped with Dez clamps, elevated and rectus muscles were dissected off. The inferior aspect of the fascial incisi on was then grasped with Dez clamps, elevated and rectus muscles were dissected off. The rectus muscles were then in the mi dline and the peritoneum identified in a clear area and entered b luntly. Copious clear peritoneal fluid noted, consistent with obstructed labor. The per itoneum was then extended superior and inferiorly with good visualization of the bladder. The bladder blade was then inserted and the vesi couterine peritoneum was then identified, grasped with pic kups and entered sharply using Metzembaum scissors. The incision was then extended laterally and min dder flap created digitally. The bladder blade was then r einserted and the uterus was incised in a transverse fashion with the scalpel. The incision was then extended laterally using Phan method. The infant was then delivere d in cephalic presentation direct OP atraumatically, nose and mouth were suctioned, cord was clamped and cut, and was handed off to waiting nurse. Nuchal cord was not noted. The placenta was then removed manually a nd the uterus was exteriorized and was cleared of all clots and jose d ris with a moist lap sponge. Cord blood banking was collected for MDA donation off the surgical fiel d. The hysterotomy was then repaired using 0 Monocryl in a running locked fa shion with good hemostasis noted. Small area of oozing in the cente r of the hysterotomy was oversewn with an additional 0-monocryl in a running lo cked fashion with excellent hemostasis following. Posterior cul de sac was cleared of all clots, a nd a very prominent sacral promontory noted. Left fallopian tube wa s noted to have a small area of oozing at the fimbria that had deve loped during manipulation. With care, the small area of oozing at the fimbria was made hemostatic wit h the bovie, with care being taken to avoid excessive cautery near th e underlying tube and ovary. Following this excellent hemostasis of the tube/fimbria no kris. The uterus was then returned to the abdomen. The pelvic colic gutters were then cleared off all clots and debris using a moist l ap sponge. The hysterotomy, bilateral tubes, and bladder were then r einspected and found to be hemostatic. The rectus muscles and perit oneum were then reapproximated in the midline using 2.0 Chromic in a mattress suture fashion. The mu scle and fascia were then examined and found to be hem ostatic. The fascia was then reapproximated using 0 Vicryl in a running fashion. The subcutaneous ti ssue was then irrigated and bovie cautery was used to obtain hemostasis. The subcutaneous tissue was then reapproximated using 2.0 Palmer in. The skin was then closed with 3.0 Monocryl in a subcuticular fashion. FRANSICO dressing applied. The patient tolerated the procedure well. She wa s then taken to recovery room in stable condition. Sponge, lap and needle coun ts were correct times 3. The radiofrequency scan was performed for retained s ponges and was negative. 2 grams of ancef and 500mg azithromycin we re given prior to the start of surgery for surgical prophylaxis. Electronically Signed by Mabel Villa MD on at 0012 RPT #:[id number] END OF REPORT 2022-08-06 17:52:00-00:00 [facility] ([facility]) Clinical Note REPORT#:[id number] REPORT STATUS: Signed DATE:08/06/22 TIME: 1751 PATIENT: YAKOV TRENT UNIT #: [id number] ROOM/BED: [address] : 96 AGE: 27 SEX: F ATTEND: Adryan Villa MD ADM AUTHOR: Mabel Villa MD * ALL edits or amendments must be made on the [employer]/computer document * See Addendum Clinical Note Note: Took over care from Dr. Salguero at 1700 Came to review labor course and plan of care wit h patient and family. SROM yesterday 08/06 at 1200 On pitocin starting at 2230 08/06 On admission 250/-3, overnight with change to 50/-[address] Salguero examined at 1400 and exam unchang ed, however forebag noted and amniotomy performed Pitocin break given from 2750-3791 Maternal HR 100s Temp 97.7 FHR 150s, mod, +accels, no decels ctx q 2-3min Came to speak with patient and family at approxi mately 1720. Discussed will plan to recheck SVE at 1830, 4+hr from last check Discussed that she is 24+ hr from ROM, and getting to 18hr on pitocin; reviewed risks of ongoing labor including chorioamnioniti s and risks of PPH She and family verbalize understanding a nd desire to continue with the plan of care. Will continue to increase pitocin per unit protocol Electronically Signed by Mabel Villa MD on at 1827 Addendum 1: 08/06/222102 by Mabel Villa MD Pt rechecked at 1830 and SVE 70/-3, HR 90s-100 s, w/o VSS, FHR cat I At that time discussed will plan to recheck at 20:30, and if not in active labor would recommend delivery by . Recheck at 20:30 70/-2. Di scussed with Yakov and her family that I recommend . Has now been 12h with minimal cervica l change, 30h ROM, and 22h on pitocin. She and her family are amenable to cesa rean delivery. Reviewed r/b/a including bleeding, infectio n, and damage to surrounding structures. Verbalizes understanding and desires to proceed. Awaiting OR. Electronically Signed by Mabel Villa MD on at 2107 RPT #:[id number] END OF REPORT 2022-08-05 22:22:00-00:00 [facility] ([facility]) OB Admission / H P REPORT#:[id number] REPORT STATUS: Signed DATE:08/05/22 TIME: 2221 PATIENT: YAKOV TRENT UNIT #: [id number] ROOM/BED: [address] : 96 AGE: 27 SEX: F ATTEND: Adryan Villa MD ADM AUTHOR: Danna Ledezma * ALL edits or amendments must be made on the [employer] document * See Addendum OB History Chief complaint: suspected ruptured memb HPI: 27 yo at 39w4d who pres ented with leakage of fluid around 12:30 pm. She had contractions that were painful but they went away once she got to [place]. Denies vaginal bleeding. Reports good movements. Denies pre-E sxs. history: : 1 Term: 0 : 0 Abortus: 0 Living children: 0 Current : Best EDC: 08/08/22 Admission EGA (weeks) 39 Admission EGA (days) 4 Conditions of : anemia Labs: Blood type: O Rh: positive Rubella: immune Hepatitis B: negative HIV: negative STD: negative Syphilis: currently negative GBS: negative Past History Additional Medical History: Knee pain Additional Surgical History: Right knee surgery Additional Family History Diabetes and thyroid disease Alcohol Use Denies EtOH use Drug Use Denies recreational drugs Smoking status for patients 13 years old or olde r: Never Smoker Medications: Home Medications: PNV WITH CA/IRON/FA/DHA (PRENATE ESSENTIAL) PNV WITH FE FUMARATE/FA () 1 TAB PO SHERRY Y IRON 18 MG PO DAILY CALCIUM ACETATE (PHOSLO) CALCIUM CARBONATE (TUMS) Allergies: Coded Allergies: No Known Allergies (07/13/22) Review of Systems : Reports: other (leakage of fluid). All systems rev neg: except as marked Objective General VS: Last Documented: Result Date Time B/P Mean 105.0 08/05 2125 B/P 139/83 08/05 2125 Temp 98.3 08/05 2125 Pulse 97 08/05 2125 Resp 18 08/05 1604 Vital Signs Date Temp Pulse Resp B/P B/P Mean Pulse Ox FiO2 08/05 98.3 87-107 18 132-139/68-83 95.0-105.0 PATIENT WEIGHT: Weight (lb): 223 Weight (oz): 15.26 Weight (kg): 101.400 Physical Exam Lungs: unlabored breathing Neuro: Exam: alert, oriented x3, normal speech Abdomen: gravid, soft, no abnormal tenderness, n o guarding, no rebound tenderness Uterine activity: Monitor: toco Frequency (description): none Pelvic exam: Pelvis clinically adequate: yes, inlet appears appropriate, pubic bone config appropr, no midpelvic contraction Cervical/ exam: Dilatation (cm): 2 Est wt (gms): 3400 Suspected macrosomia: No Suspected > 5000 grams: No station: - 3 presentation: cephalic (at 1600 and at 22 15) Membranes: Membranes: PROM ROM date: 08/05/22 ROM time: 1230 Amniotic fluid: clear Lower extremities: Edema: none Baby A: Baby A baseline: 140 bpm Baby A variability: moderate 6-25 bpm Baby A accelerations: 15 X 15 Baby A decelerations: none Baby A FHR category: category 1 Results Findings/Data: Laboratory Tests: 08/05 08/05 08/05 1810 1710 1610 Hematology WBC (6.5 - 12.3 K/mm3) 10.4 RBC (3.51 - 4.69 M/mm3) 4.13 Hgb (10.1 - 13.8 g/dL) 11.2 Hct (32.5 - 41.8 %) 35.1 MCV (84.6 - 96.6 fL) 85.0 MCH (27.3 - 33.9 pg) 27.1 L MCHC (32.0 - 34.2 gm/dL) 31.9 L RDW (12.2 - 16.3 %) 15.6 Plt Count (134 - 363 K/mm3) 170 MPV (9.2 - 12.7 fL) 13.2 H Neut % (Auto) (57.9 - 77.3 %) 80.3 H Lymph % (Auto) (14.5 - 29.7 %) 14.1 L Callahan % (Auto) (3.6 - 10.2 %) 4.8 Eos % (Auto) (0.0 - 3.0 %) 0.4 Baso % (Auto) (0.1 - 0.9 %) 0.1 Neut # (Auto) (K/mm3) 8.3 Lymph # (Auto) (K/mm3) 1.5 Callahan # (Auto) (K/mm3) 0.5 Eos # (Auto) (K/mm3) 0.04 Baso # (Auto) (K/mm3) 0.0 Other Body Source Membranes Rupture RUPTURED NON-RUPTURED Serology Treponema pallidum Ab (NONREACTIVE) NONREACTIVE Hep Bs Antigen (NONREACTIVE) NONREACTIVE Hepatitis C Antibody (NONREACTIVE) NONREACTIVE Hep C Ab Signal/Cutoff (<0.80) 0.03 HIV 1 2 Antibody (NONREACTIVE) NONREACTIVE ROM test: positive Diagnosis, Assessment Plan Diagnosis, Assessment Plan Free Text A P: 27 yo at 39w4d admitted for PROM 1. PROM: Clear fluid, ROM at 12:30 pm today. Cervix 2/th/hi at 1600 and pt moved up to L D approx 2100. Cervix unchanged at 2215. To start pitocin 2x2. Pelvis clinically adequate for vaginal delivery. 2. Cat 1 FHT 3. PMH: Knee pain 4. PSH: Right knee surgery 5. Rh+, MMRI, , GBS neg 6. Baby girl "Lena" EFW 3400 gm. Pediatrix fo r delivery 7. Stadol/epidural prn pain Dispo: Admit for induction of labor. Assessment/Impression: PROM 39 plus weeks, reass uring status Plan: admit to inpatient, induction of labor at 2237 Addendum 1: 08/06/22 1427 by Xiomara Salguero MDE /-2 at 0700 (change from prior c heck at 2 cm) pt ROM since noon 08/05, due to prolonged ROM, ordere d continue to increase pit 2x2 and recheck in 6 hrs. At recheck noted to be unchanged but with palpab le forebag 1400- SVE 4/50/-2, arom/clear, IUPC in place, PI t 21. FHTs overall reassuring with baseline 130s, +acc els mod olivia and no recurrent decels VSS and AF continue to augment with pit as tolerated. Reche ck in 4-6 hrs sooner PRN. monitor for s/sx of infection due to prolonged R OM Electronically Signed by Xiomara Salguero MD o n 08/06/22 at 1430 RPT #:[id number] END OF REPORT 2022-07-17 02:56:00-00:00 [id number] [facility] [address] [address] PATIENT NAME: YAKOV TRENT ADMIT DATE: ACCOUNT NO: [id number] ROOM NO: AGE: 27 SEX: F ADMITTING PHYSICIAN: ATTENDING PHYSICIAN: Mabel Villa MD ADMISSION DATE: 07/13/2022 22:45:00 This is a triage evaluation dictated on patient, Yakov Trent, for evaluation in OB ED, begun on 07/13/2022 with dispo sition on 07/14/2022 by Shahana Guevara MD, triage hospitalist, seen per request of Dr. Bansal, on-call for Dr. Villa. HISTORY OF PRESENT ILLNESS: The patient is a 27- year-old G1, P0 with last menstrual period in 10/2021, and [facility] ed date of confinement 08/08/2022. She presented at 36 and 2/7 weeks complaining of gi kage of fluid about 9:00 p.m. with onset of cramping since the day prior. She stated initially the cramping was 2/10, but on arrival had increased to 6/10. She denied vaginal bleeding and reported good movement. She denied headach e, vision changes or other symptoms of preeclampsia. She denied fever, chil ls, nausea, vomiting, constipation, or dysuria. She did report some lo ose bowel movements for the past few days. She denied ill contacts. She migdalia ed recent travel. She denied contact with exotic pets. She denied cough, sore throat, loss of taste and smell or other symptoms of COVID. She de nies prior diagnosis of COVID. She was previously vaccinated with 2 doses of [place] derna vaccine. Her care began with Dr. Villa at approximately 7 weeks' gestat ion. Her next visit is scheduled for July 17. She denies prior co mplications in the and states to her knowledge all labs and ultraso unds have been within normal limits. PAST MEDICAL HISTORY: Negative. PAST SURGICAL HISTORY: Right knee surgery in and wisdom teeth in 2015. ALLERGIES: NO KNOWN DRUG ALLERGIES. MEDICATIONS: vitamins, twice daily iron , also calcium most days and Tums occasionally for reflux symptoms. OBSTETRICAL HISTORY: The patient is primiparous. GYNECOLOGIC HISTORY: Monthly cycles, all Pap sme ars normal, and no history of STDs. SOCIAL HISTORY: The patient denies tobacco or il licit drug use. She reports occasional prepregnancy alcohol use. She lives w ith her boyfriend, a 29-year-old healthy male. 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 Her job does not require lifting or chemical exposures. FAMILY HISTORY: Father with diabetes and hyperte nsion. Mother with diabetes PATIENT NAME: YAKOV TRENT [id number] and thyroid disease. Maternal grandmother with t hyroid cancer. Otherwise, noncontributory. PHYSICAL EXAMINATION: GENERAL: The patient is a well-nourished , well-developed, petite female, in no acute distress, lying on triage stretcher in OB ED. VITAL SIGNS: Height 5 feet 0 inches. Current irina ght 222 pounds. The patient is unsure of her prepregnancy weight. Initial bl ood pressure was 149/69, but after resting quietly, the n ext pressures were 120/58 and 130/60, pulse was 85, respirations 18, and temperature 98.4. HEAD AND NECK: Within normal limits without lymp hadenopathy or thyromegaly. CHEST: With unlabored breathing, regular rate an d rhythm. BREASTS: Deferred. ABDOMEN: Soft, nontender, gravid. PELVIC: On sterile speculum exam, leukorrhea wer e seen, no evidence of blood. On sterile vaginal exam, cervix was fingertip, 5 0, soft, cephalic, posterior, intact and -2. ROM Plus had previously been boaz ected by RN and reported as negative before the pelvic exam was performed. EXTREMITIES: Without edema. NEUROLOGIC: Nonfocal. The patient is awake, aler t and oriented x3. LABORATORY DATA: Urinalysis showed 3+ glucose, o therwise negative with 0-2 wbc's, rare epithelial cells, and rare b acteria. As stated above, ROM Plus was negative. NST with category 1 strip with baseline of 120 t o 130, multiple 15 x 15 accelerations, no deceleration. Initially, she a ppeared to be chloe frequently, but with IV fluid hydration, the con tractions spaced out. ASSESSMENT AND PLAN: This is a 27-year-old G1 at 36 and 3/7 weeks at the time of disposition who presented complaining of leak age of fluid and cramping. No evidence of ruptured membranes. With IV fluid hy dration, the cramping has resolved. No evidence of labor. She is d ischarged home in stable condition with reassuring fe romain status. She is to drink greater than 100 ounces of water daily and eat frequent small meals. She is to follow up as scheduled on 07/[address] Villa or earlier for vaginal bleeding, leakage of fluid, decreased movement, contractions with incr easing force and frequency or other concerns. All instructions given verbally by and questions answered. Dictated By: Shahana Guevara MD Date Dictated: 07/17/2022 02:56:56 Date Transcribed: 07/17/2022 04:31:21 DSD/PRE/JEANCARLOS Receipt ID: [id number] Authenticated and Edited by Shahana Guevara MD On 07/25/22 10:48:53 AM Electronically Signed by Shahana Guevara MD on 12/10 at 1051 PATIENT NAME: YAKOV TRENT [id number]
[2022-10-06] MEDS ORDERED: MORPHINE 4 MG/ML SYR ONE (03:11)
[2022-10-06] MEDS ORDERED: ONDANSETRON 4 MG/2 ML VIAL ONE ×3 (03:12→14:50)
[2022-10-06 03:21] LABS: Absolute Lymphocytes (CBC) 2.2 K/uL (0.7-4.9); Hematocrit 34.6 % (36.0-45.0); Lymphocytes % 37.5 % (15.3-44.8); MCV 73.9 fL (80-100); RBC Red Blood Cell Count 4.68 M/uL (3.86-4.86)
[2022-10-06 03:30] LABS: Albumin 3.8 g/dL (3.4-5.0); Bilirubin Total 0.2 mg/dL (0.2-1.0); Potassium 3.4 mEq/L (3.5-5.1)
[2022-10-06] MEDS ORDERED: PROMETHAZINE INJ 25 MG/ML AMP ONE (03:30)
[2022-10-06] MEDS ORDERED: NA CHLORIDE 0.9% 1,000 ML ONE ×2 (03:31→15:03)
--- NOTE | 2022-10-06 05:14 | EDPHYS ---
Physician Documentation [facility] Name: Naomi Hurt Age: 27 yrs Sex: Female : 1995 Arrival Date: 10/06/2022 Time: 02:18 Bed 20 Private MD: ED Physician Suzanna Flores HPI: 10/06 02:47 This 27 yrs old Female presents to ER via Unassigned with complaints of sp3 Abdominal Pain. 02:47 27-year-old female with right upper quadrant abdominal pain currently being worked up sp3 with Dr. Rehman. Patient is 8 weeks has been having "attacks" of intense abdominal pain described as sharp pain in the right upper quadrant. She has been seen in [place] ER multiple times and states that she has had CT scans performed but not an ultrasound. Dr. Rehman to schedule an ultrasound for October 11 but tonight she had multiple attacks of the same pain pattern. So she presents to the ED for pain control, nausea control and possible ultrasound. On review of systems she denies headache, fever, neck pain, chest pain, shortness of breath, lower abdominal pain, diarrhea, blood or mucus in her emesis, rash, bleeding, or any other signs or symptoms on review of systems at this time.. 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 - Social history:: Smoking status: Patient denies any tobacco usage or history of. Patient/guardian denies using alcohol, street drugs. ROS: 02:53 Constitutional: Negative for fever, chills, and weight loss, Eyes: Negative for injury, sp3 pain, redness, and discharge, ENT: Negative for injury, pain, and discharge, Neck: Negative for injury, pain, and swelling, Cardiovascular: Negative for chest pain, palpitations, and edema, Respiratory: Negative for shortness of breath, cough, wheezing, and pleuritic chest pain, Back: Negative for injury and pain, MS/Extremity: Negative for injury and deformity, Skin: Negative for injury, rash, and discoloration, Neuro: Negative for headache, weakness, numbness, tingling, and seizure, Psych: Negative for depression, anxiety, suicide ideation, homicidal ideation, and hallucinations, Allergy/Immunology: Negative for hives, rash, and allergies, Endocrine: Negative for neck swelling, polydipsia, polyuria, polyphagia, and marked weight changes. 02:53 All other systems are negative. Exam: 02:53 Constitutional: This is a well developed, well nourished patient who is awake, alert, sp3 and in no acute distress. Head/Face: Normocephalic, atraumatic. Eyes: Pupils equal round and reactive to light, extra-ocular motions intact. Lids and lashes normal. Conjunctiva and sclera are non-icteric and not injected. Cornea within normal limits. Periorbital areas with no swelling, redness, or edema. ENT: Nares patent. No nasal discharge, no septal abnormalities noted. External auditory canals are clear. Oropharynx with no redness, swelling, or masses, exudates, or evidence of obstruction, uvula midline. Mucous membranes moist. Neck: Trachea midline, no thyromegaly or masses palpated, and no cervical lymphadenopathy. Supple, full range of motion without nuchal rigidity, or vertebral point tenderness. No Meningismus. Chest/axilla: Normal chest wall appearance and motion. Nontender with no deformity. No lesions are appreciated. Cardiovascular: Regular rate and rhythm with a normal S1 and S2. No gallops, murmurs, or rubs. Normal PMI, no JVD. No pulse deficits. Respiratory: Lungs have equal breath sounds bilaterally, clear to auscultation and percussion. No rales, rhonchi or wheezes noted. No increased work of breathing, no retractions or nasal flaring. Back: No spinal tenderness. No costovertebral tenderness. Full range of motion. Skin: Warm, dry with normal turgor. Normal color with no rashes, no lesions, and no evidence of cellulitis. MS/ Extremity: Pulses equal, no cyanosis. Neurovascular intact. Full, normal range of motion. Neuro: Awake and alert, GCS 15, oriented to person, place, time, and situation. Cranial nerves II-XII grossly intact. Motor strength 5/5 in all extremities. Sensory grossly intact. Cerebellar exam normal. Normal gait. Psych: Awake, alert, with orientation to person, place and time. Behavior, mood, and affect are within normal limits. 02:53 Abdomen/GI: Right upper quadrant abdominal pain without peritoneal signs, rebound or guarding.. Vital Signs: 02:55 BP 135 / 75; Pulse 61; Resp 17 S; Temp 98.7(TE); Pulse Ox 100% on R/A; Weight 83.91 kg lg3 (R); Height 5 ft. 0 in. ; Pain 7/10; 06:51 BP 106 / 69; Pulse 57; Resp 16 S; Pulse Ox 100% on R/A; lg3 07:51 BP 114 / 74; Pulse 64; Resp 18; Pulse Ox 99% on R/A; ld1 02:55 Body Mass Index 36.13 (83.91 kg, 152.4 cm) lg3 02:55 Pain Scale: Adult lg3 MDM: 02:39 Patient medically screened. sp3 02:54 Data reviewed: vital signs, nurses notes, lab test result(s), radiologic studies. ED sp3 course: 27-year-old female with likely biliary colic right upper quadrant abdominal pain. Will obtain laboratory values and obtain limited abdominal ultrasound. If patient is infected, we will admit otherwise we will safely discharge with continued treatment plan by Dr. Rehman for outpatient intervention. Patient is okay with the plan. We will administer morphine and Zofran IV for symptomatic control. Disposition pending work-up and patient course.. 03:24 ED course: Patient states pain is increased and she is now driving. Ultrasound sp3 demonstrates multiple gallstones without evidence of cholecystitis. Specifically there is no pericholecystic fluid, gallbladder wall thickening or common bile duct dilatation. I will discuss with Dr. Rehman after 5 AM for likely observation admission for likely cholecystectomy.. 05:12 ED course: Discussed with Dr. Rehman who has accepted her to his service. We will sp3 keep her n.p.o. and start Zosyn IV.. 10/06 02:39 Order name: CBC with Diff; Complete Time: 03:54 sp3 10/06 02:39 Order name: CMP; Complete Time: 03:54 sp3 10/06 02:39 Order name: Lipase; Complete Time: 03:54 sp3 10/06 05:18 Order name: Test, Urine sp3 10/06 02:39 Order name: US Abdomen Limited sp3 10/06 02:39 Order name: IV Saline Lock; Complete Time: 03:13 sp3 10/06 02:39 Order name: Labs collected and sent; Complete Time: 03:13 sp3 10/06 03:23 Order name: NPO; Complete Time: 03:35 sp3 Administered Medications: 03:13 Drug: Ondansetron IVP 4 mg Route: IVP; Site: right antecubital; lg3 03:36 Follow up: Response: No adverse reaction; No change in condition; Nausea unchanged; lg3 Vomiting unchanged 03:13 Drug: morphine IVP or IV 4 mg Route: IVP; Infused Over: 4 mins; Site: right antecubital;lg3 03:36 Follow up: Response: No adverse reaction; No change in condition lg3 03:35 Drug: Promethazine IVP 12.5 mg Route: IVP; Site: right antecubital; lg3 05:25 Follow up: Response: No adverse reaction; Marked relief of symptoms; Vomiting decreased lg3 03:35 Drug: NS 0.9% IV 1000 ml Route: IV; Rate: 125 ml/hr; Site: right antecubital; lg3 05:22 Drug: Piperacillin-Tazobactam IVPB 3.375 grams Route: IVPB; Infused Over: 60 mins; lg3 Site: right antecubital; 06:22 Follow up: Response: No adverse reaction; IV Status: Completed infusion; IV Intake: lg3 100ml Disposition Summary: 10/06/22 05:14 Hospitalization Ordered Hospitalization Status: Observation sp3 Provider: Cyrus Rehman sp3 Location: Telemetry/[facility] [place] (observation) sp3 Condition: Stable sp3 Problem: an acute exacerbation sp3 Symptoms: have worsened sp3 Bed/Room Type: Standard sp3 Room Assignment: 210(10/06/22 05:46) mw Diagnosis - Biliary colic, intractable abdominal pain sp3 Forms: - Medication Reconciliation Form sp3 - SBAR form sp3 Signatures: Dispatcher [employer] EDMS Laura Zurita RN RN mw Thania Villa RN RN 3 Suzanna Flores MD MD sp3 Corrections: (The following items were deleted from the chart) 05:46 05:14 sp3 mw
--- NOTE | 2022-10-06 05:14 | ER ---
Nurse's Notes [facility] Name: Naomi Hurt Age: 27 yrs Sex: Female : 1995 Arrival Date: 10/06/2022 Time: 02:18 Bed 20 Private MD: Diagnosis: Biliary colic, intractable abdominal pain Presentation: 10/06 02:55 Chief complaint: Patient states: i have a bad gallbladder and my appointment for my lg3 ultrasound is on the but the pain is getting worse and more frequent. Coronavirus screen: Client denies travel out of the [place] in the last 14 days. At this time, the client does not indicate any symptoms associated with coronavirus-19. Ebola Screen: No symptoms or risks identified at this time. Initial Sepsis Screen: Does the patient meet any 2 criteria? No. Patient's initial sepsis screen is negative. Does the patient have a suspected source of infection? No. Patient's initial sepsis screen is negative. Risk Assessment: Do you want to hurt yourself or someone else? Patient reports no desire to harm self or others. Onset of symptoms is unknown. 02:55 Method Of Arrival: Ambulatory lg3 02:55 Acuity: MANDEEP 3 lg3 Triage Assessment: 03:07 General: Appears in no apparent distress. uncomfortable, Behavior is calm, cooperative. lg3 Pain: Complains of pain in right upper quadrant Also complains of nausea. EENT: No deficits noted. No signs and/or symptoms were reported regarding the EENT system. Neuro: No deficits noted. Armijo Agitation-Sedation Scale (RASS): 0 - Alert and Calm Level of Consciousness is awake, alert, obeys commands, Oriented to person, place, time, situation. Cardiovascular: No deficits noted. Denies chest pain, shortness of breath, Capillary refill < 3 seconds Clubbing of nail beds is absent JVD is absent Patient's skin is warm and dry. Respiratory: No deficits noted. Airway is patent Trachea midline Respiratory effort is even, unlabored, Respiratory pattern is regular, symmetrical. GI: No deficits noted. Abdomen is round non-distended, obese, Bowel sounds present X 4 quads. Abd is soft X 4 quads Abdomen is tender to palpation in right upper quadrant Guarding noted Reports upper abdominal pain, cramping, nausea. : No deficits noted. No signs and/or symptoms were reported regarding the genitourinary system. Derm: No deficits noted. No signs and/or symptoms reported regarding the dermatologic system. Skin is intact, is healthy with good turgor, Skin is dry, Skin is normal, Skin temperature is warm. Musculoskeletal: No deficits noted. No signs and/or symptoms reported regarding the musculoskeletal system. Circulation, motion, and sensation intact. Range of motion: intact in all extremities. 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 - Social history:: Smoking status: Patient denies any tobacco usage or history of. Patient/guardian denies using alcohol, street drugs. Screenin:12 [facility] ED Fall Risk Assessment (Adult) History of falling in the last 3 months, lg3 including since admission No falls in past 3 months (0 pts). Abuse screen: Denies threats or abuse. Denies injuries from another. Nutritional screening: No deficits noted. Tuberculosis screening: No symptoms or risk factors identified. Assessment: 03:11 General: see triage assessment . lg3 03:30 GI: Pt is actively vomiting bile, clear fluid. lg3 04:52 Reassessment: Patient appears in no apparent distress at this time. No changes from lg3 previously documented assessment. Patient and/or family updated on plan of care and expected duration. Pain level reassessed. Patient is alert, oriented x 3, equal unlabored respirations, skin warm/dry/pink. pt quietly resting at this time. 07:51 Reassessment: Patient appears in no apparent distress at this time. No changes from ld1 previously documented assessment. Patient and/or family updated on plan of care and expected duration. Pain level reassessed. Patient is alert, oriented x 3, equal unlabored respirations, skin warm/dry/pink. Vital Signs: 02:55 BP 135 / 75; Pulse 61; Resp 17 S; Temp 98.7(TE); Pulse Ox 100% on R/A; Weight 83.91 kg lg3 (R); Height 5 ft. 0 in. ; Pain 7/10; 06:51 BP 106 / 69; Pulse 57; Resp 16 S; Pulse Ox 100% on R/A; lg3 07:51 BP 114 / 74; Pulse 64; Resp 18; Pulse Ox 99% on R/A; ld1 02:55 Body Mass Index 36.13 (83.91 kg, 152.4 cm) lg3 02:55 Pain Scale: Adult lg3 ED Course: 02:22 Patient arrived in ED. jj6 02:33 Suzanna Flores MD is Attending Physician. sp3 02:45 Missed attempt(s): 20 gauge in right forearm. bc6 02:56 Triage completed. lg3 02:59 Missed attempt(s): 20 gauge in left antecubital area. bc6 03:07 Arm band placed on right wrist. lg3 03:11 Thania Villa, RN is Primary Nurse. lg3 03:12 Inserted saline lock: 22 gauge in right antecubital area, using aseptic technique. lg3 Blood collected. 03:12 Patient has correct armband on for positive identification. Placed in gown. Bed in low lg3 position. Call light in reach. Side rails up X 1. Client placed on continuous cardiac and pulse oximetry monitoring. NIBP monitoring applied. Door closed. Noise minimized. Warm blanket given. 03:13 CBC with Diff Sent. lg3 03:13 CMP Sent. lg3 03:13 Lipase Sent. lg3 03:17 US Abdomen Limited In Process Unspecified. EDMS 05:13 Cyrus Rehman MD is Hospitalizing Provider. sp3 05:36 Test, Urine Sent. kd3 06:53 No provider procedures requiring assistance completed. lg3 Administered Medications: 03:13 Drug: Ondansetron IVP 4 mg Route: IVP; Site: right antecubital; lg3 03:36 Follow up: Response: No adverse reaction; No change in condition; Nausea unchanged; lg3 Vomiting unchanged 03:13 Drug: morphine IVP or IV 4 mg Route: IVP; Infused Over: 4 mins; Site: right antecubital;lg3 03:36 Follow up: Response: No adverse reaction; No change in condition lg3 03:35 Drug: Promethazine IVP 12.5 mg Route: IVP; Site: right antecubital; lg3 05:25 Follow up: Response: No adverse reaction; Marked relief of symptoms; Vomiting decreased lg3 03:35 Drug: NS 0.9% IV 1000 ml Route: IV; Rate: 125 ml/hr; Site: right antecubital; lg3 05:22 Drug: Piperacillin-Tazobactam IVPB 3.375 grams Route: IVPB; Infused Over: 60 mins; lg3 Site: right antecubital; 06:22 Follow up: Response: No adverse reaction; IV Status: Completed infusion; IV Intake: lg3 100ml Medication: 06:53 VIS not applicable for this client. lg3 Intake: 06:22 IV: 100ml; Total: 100ml. lg3 Outcome: 05:14 Decision to Hospitalize by Provider. sp3 09:15 Patient left the ED. mm9 Signatures: Dispatcher [employer] Thania Zimmerman RN RN lg3 Mabel Wade RN RN ld1 Suzanna Flores MD MD sp3 Isabella Cueto Kyli, RN RN kd3 Chantelle Rehman mm9 Roxy Bardales bc6 Corrections: (The following items were deleted from the chart) 03:00 02:59 Missed attempt(s): 20 gauge in right forearm. bc6 bc6
[2022-10-06] MEDS ORDERED: NA CHLORIDE 0.9% 100 ML ONE (05:26)
[2022-10-06] MEDS ORDERED: PIPERACIL/TAZO 3.375 GM VIAL IV ONE (05:26)
[2022-10-06 05:55] LABS: Specific Gravity 1.022 (1.005-1.030)
[2022-10-06] MEDS ORDERED: ONDANSETRON 4 MG/2 ML VIAL IV PRN (09:19)
[2022-10-06] MEDS ORDERED: NA CHLORIDE 0.9% 1,000 ML IV SCH (09:19)
[2022-10-06] MEDS: NA CHLORIDE 0.9% 1,000 ML IV SCH ×2 (10:24→16:52)
[2022-10-06] MEDS: PIPER TAZO 3.375 GM in NA CHLORIDE 0.9% 100 ML IV SCH ×2 (10:30→16:51)
[2022-10-06 12:52] LABS: Specific Gravity 1.026 (1.005-1.030); Urine Bacteria None Seen /HPF (<20); Urine Bilirubin NEGATIVE (Negative); Urine Blood 3+ (OVER) (Negative); Urine Clarity Turbid (Clear); Urine Color Light-Orange (Yellow); Urine Glucose NEGATIVE (Negative); Urine Mucus Slight /HPF (None Seen); Urine Protein 1+ (Negative); Urine RBC >50 /HPF (None Seen); Urine Urobilinogen Normal (Normal)
--- NOTE | 2022-10-06 12:52 | RAD REPORT ---
EXAM DESCRIPTION: US - Abdomen Exam Limited - 10/06/2022 3:16 am CLINICAL HISTORY: Abdominal pain COMPARISON: None TECHNIQUE: Grayscale, color Doppler, and duplex Doppler images of right upper abdomen. FINDINGS: No significant free fluid. Liver parenchyma grossly unremarkable. Main portal vein shows normal antegrade hepatopedal flow. Common bile duct measuring 3 mm diameter and within normal limits. No intra or extrahepatic biliary ductal dilatation. Gallbladder shows moderate amount of stones. No gallbladder wall thickening or pericholecystic fluid. Negative sonographic Taylor sign. Pancreas not well visualized. IMPRESSION: Moderate amount of small gallstones. No sonographic evidence of acute calculous cholecys titis or biliary obstruction. Electronically signed by: Eleazar Greene MD 10/06/2022 5:03 AM CDT Due to temporary technical issues with the PACS/Fluency reporting system, reports are being signed by the in house radiologists without review as a courtesy to insure prompt reporting. The interpreting radiologist is fully responsible for the content of the report.
[2022-10-06] MEDS ORDERED: propofoL 200 MG/20 ML VIAL IV ONE (13:38)
[2022-10-06] MEDS ORDERED: ROCURONIUM 50 MG/5 ML VIAL IV ONE (13:38)
[2022-10-06] MEDS ORDERED: FENTANYL CITR 100 MCG/2 ML ONE (13:38)
[2022-10-06] MEDS ORDERED: MIDAZOLAM HCL 2 MG/2 ML INJ ONE (13:39)
[2022-10-06] MEDS ORDERED: LIDOCAINE 2% MPF 5 ML VIAL ONE (13:39)
[2022-10-06] MEDS ORDERED: dexAMETHasone 10 MG/ML VIAL ONE (14:01)
--- NOTE | 2022-10-06 14:17 | P.BOP ---
Preoperative diagnosis: acute cholecystitis, symptomatic cholelithiasis Postoperative diagnosis: same Primary procedure: Laparoscopic cholecystectomy Bilingual Inside Sales Representative: ANTOINETTE NUNEZ (FARM TRUCK [employer]IVER) Estimated blood loss: <10cc Specimen: gb Findings: as above Anesthesia: General Complications: None Transferred to: Recovery Room Condition: Good
[2022-10-06] MEDS ORDERED: Mastisol Adhesive Liq ONE (14:21)
[2022-10-06] MEDS ORDERED: NEOSTIGMINE 1 MG/ML -10 ML VIAL ONE (14:30)
[2022-10-06] MEDS ORDERED: GLYCOPYRROLATE 0.2 MG/ML SYR ONE (14:30)
[2022-10-06] MEDS ORDERED: KETOROLAC 30 MG/ML INJ ONE (14:30)
[2022-10-06] MEDS: HYDROMORPHONE HCL 1 MG/ML INJ ONE ×4 (14:45→15:00)
[2022-10-06] MEDS: MIDAZOLAM HCL 2 MG/2 ML INJ ONE ×3 (15:05→15:35)
[2022-10-06] MEDS: FENTANYL CITR 100 MCG/2 ML ONE ×4 (15:10→15:25)
[2022-10-06 15:37] VITALS: O2SAT 100
[2022-10-06] MEDS: MORPHINE 4 MG/ML SYR IV PRN ×2 (18:41→23:07)
--- NOTE | 2022-10-06 20:19 | HP ---
Date of Admission: 10/06/2022 Diagnoses: Acute cholecystitis, symptomatic cholelithiasis, intractable right upper quadrant abdomin al pain. Indication: This is the case of a 27-year-old patient known by us in the office and she was seen rec ently for symptomatic cholelithiasis or at least the working diagnosis for that. The attack came las t night and she decided to come this morning to the ER, had an ultrasound done showing cholelithiasis . The pain did not subside, so she was admitted for symptomatic cholelithiasis, intractable abdomina l pain, acute cholecystitis, and she preferred the surgery to be done during this admission. She den ies any trauma, any dysuria, hematuria, hematochezia, or melena. Denies any recent traveling out of the country. Denies any family member sick at home. Review of Systems: See above. Nausea with no vomiting. Review of Systems: 10 points unremarkable otherwise. Allergies: NONE. Medications: control. Past Medical History: Anemia. Past Surgical History: . Last baby was 8 weeks ago. Social History: She does not smoke. She does drink alcohol. Family History: Noncontributory. Physical Examination: General: The patient is awake and alert. Eyes: Pupils are equal and reactive. Anicteric supple. Chest: Clear. Heart: S1, S2. Abdomen: Epigastric right upper quadrant tenderness with Taylor sign positive. Breasts: Deferred. Rectal: Deferred. Pelvic: Deferred. Extremities: Good capillary refill. Neurologic: Cranial nerves 2 through 12 within grossly normal limits. Laboratory Data: Blood work shows WBC count of 5.9, hemoglobin of 11, and platelets of 259. Potassi um 3.4, total bilirubin of 0.2, alkaline phosphate 123, lipase 50. UA: WBC count more than 50, bloo d 3+, nitrite negative. Ultrasound of the gallbladder dictated by Dr. Buckley as cholelithiasis. Assessment: A 27-year-old patient with intractable right upper quadrant abdominal pain, acute cholec ystitis, symptomatic cholelithiasis. The patient wanted surgery done during this admission. We expl ained to her laparoscopic possible open cholecystectomy options, which include, but are not limited t o infection, bleeding, damage to adjacent structures, anesthesia complication, choledocholithiasis, b ile leak, pancreatitis, myocardial infarction, and even . She also understands this may not rel ieve symptoms. She might need more than one surgical intervention. She understood, signed a consent . She wants surgery done during this admission. SANTOSH Voice ID: [id number]
[2022-10-06] MEDS: HYDROCODONE/APAP 5/325 MG TAB PO PRN (21:26)
[2022-10-07] MEDS: PIPER TAZO 3.375 GM in NA CHLORIDE 0.9% 100 ML IV SCH ×2 (01:00→08:02)
[2022-10-07] MEDS: HYDROCODONE/APAP 5/325 MG TAB PO PRN ×3 (01:28→17:39)
[2022-10-07 07:19] LABS: Magnesium 1.9 mg/dL (1.6-2.4); Potassium 3.5 mEq/L (3.5-5.1)
[2022-10-07] MEDS ORDERED: POTASSIUM CL SA 10 MEQ TAB PO ONE (09:00)
[2022-10-07 09:44] VITALS: BMI 35.7
[2022-10-07] MEDS: MORPHINE 4 MG/ML SYR IV PRN (10:57)
--- NOTE | 2022-10-07 11:04 | P.DS ---
Admission Date: 10/06/22 Discharge Date: 10/07/22 Disposition: ROUTINE DISCHARGE Discharge Condition: GOOD Vital Signs/Physical Exam: Temp Pulse Resp BP Pulse Ox 98.2 F 66 16 121/64 93 10/07/22 08:00 10/07/22 08:00 10/07/22 08:00 10/07/22 08:00 10/07/22 08:00 General: Alert, In no apparent distress, Cooperative HEENT: Normocephalic, PERRLA Neck: Supple Respiratory: Normal air movement Cardiovascular: No edema, Normal pulses Gastrointestinal: Soft and benign, No rebound, No guarding Musculoskeletal: No erythema, No tenderness, No warmth Integumentary: No rashes, No breakdown Neurological: Normal speech Laboratory Data at Discharge: WBC 5.90 thou/uL (4.3-10.9) 10/06/22 03:02 Hgb 11.1 g/dL (12.0-15.0) L 10/06/22 03:02 Hct 34.6 % (36.0-45.0) L 10/06/22 03:02 Plt Count 259 thou/uL (152-406) 10/06/22 03:02 Sodium 140 mEq/L (136-145) 10/07/22 06:34 Potassium 3.5 mEq/L (3.5-5.1) 10/07/22 06:34 BUN 7 mg/dL (7-18) 10/07/22 06:34 Creatinine 0.66 mg/dL (0.55-1.02) 10/07/22 06:34 Glucose 125 mg/dL (74-106) H 10/07/22 06:34 Magnesium 1.9 mg/dL (1.6-2.4) 10/07/22 06:34 Total Bilirubin 0.2 mg/dL (0.2-1.0) 10/06/22 03:02 AST 17 U/L (15-37) 10/06/22 03:02 ALT 41 U/L (13-56) 10/06/22 03:02 Alkaline Phosphatase 123 U/L (45-117) H 10/06/22 03:02 Lipase 50 U/L (13-75) 10/06/22 03:02 Home Medications: Norethindrone 0.35 mg PO DAILY 10/06/22 Amox/Clavulanate [Augmentin 875-125 Tab] 875 mg PO Q12H #10 tab 10/07/22 New Medications: Amox/Clavulanate [Augmentin 875-125 Tab] 875 mg PO Q12H #10 tab Physician Discharge Instructions: Keep surgical area clean and dry until tomorrow. Then , remove outer dressing, keep sterile strips intact, and shower. Diet: Regular Activity: No lifting more than 10 lbs Followup: Cyrus Rehman MD [ACTIVE - CAN ADMIT] - 1 Week NONE,NONE [Primary Care Provider] -
--- NOTE | 2022-10-07 11:55 | OP ---
Date of Procedure: 10/06/2022 Surgeon: Cyrus Rehman MD Preoperative Diagnosis: Acute cholecystitis, symptomatic cholelithiasis. Postoperative Diagnosis: Acute cholecystitis, symptomatic cholelithiasis. Procedure: Laparoscopic cholecystectomy. Anesthesia: General. Complications: None. Anesthesia: General plus local. Findings: Acute cholecystitis, gallbladder wall edema, distended gallbladder, and as above. Complications: None. Estimated Blood Loss: Less than 10 cc. Indication: The is the case of a female, who comes to us with acute abdominal pain, intractable. Jacoby davis was admitted to the hospital. Surgery was consulted for options for surgery. The benefits, al ternatives, and risks of laparoscopic possible open cholecystectomy were fully explained to the patie nt which include, but not limited to, infection, bleeding, damage to adjacent structures, anesthesia complication, choledocholithiasis, bile leak, pancreatitis, OR, and even . She also understands this may not relieve any symptoms. She might need more than one surgical intervention. She underst ood, signed a consent. Description Of Procedure: Patient was brought to the operating room, placed in supine position. Ane sthesia was done without complication. Abdominal area was prepped and draped in the usual sterile fa shion. Marcaine 0.5% was injected for local anesthetic followed by sharp incision of the skin in the infraumbilical region. Incision was carried down to fascia, which was opened under direct vision. Peritoneum was encountered, opened under direct vision. Vicryl #1 placed inside the fascia. Jamarcus trocar was carefully introduced. Pneumoperitoneum was obtained. I placed 3 more trocars, 5 mm each, 1 in epigastric area, 2 in the right upper quadrant under direct visualization. This allowed me to put a grasper in the fundus of the gallbladder, another grasper in the infundibulum, retracting the g allbladder in the inferolateral fashion exposing the triangle of Calot, obtaining critical view. Cys tic duct and cystic artery were clearly isolated, free circumferentially, and a connection between th ose and the gallbladder was identified. I proceeded to ligate those by using at least 3 clips proxim al, 1 clip distal, ligation in the middle. Same was done with the cystic artery. A small little bra nch of the cystic artery was also ligated using the same technique. Hepatic arteries and common bile duct were protected at all times. Gallbladder was removed from liver using Bovie cauterizer and rem jones from abdominal cavity using an EndoCatch through the umbilical incision. Area was inspected onc e again. No bile leak. No bleeding. At that moment, I proceeded to remove the trocars under direct vision, deflated pneumoperitoneum, closed the fascia with #1 Vicryl, irrigated subcutaneous tissue, closed that with 3-0 chromic, and skin in a subcuticular fashion with 3-0 chromic and Steri-Strips on top. Patient tolerated the procedure well. Patient was sent to recovery in stable condition. Spon ge count and instrument counts were correct. HM/MODL Voice ID: [id number] Report ID: [id number]
[2022-10-07] MEDS: NA CHLORIDE 0.9% 1,000 ML IV SCH (12:59)
[2022-10-07 16:58] VITALS: BP 117/63; TEMP 98.5
== END 2022-10-07 18:06 | disposition home or self-care (01) ==
LOC: ER 02:18 → ERHOLD 06:06 → 2ND 06:59
PROVIDERS: ADMIT Surgery; ATTEND Surgery
PROC: 0FT44ZZ Resection of Gallbladder, Percutaneous Endoscopic Approach (ICD-10-PCS; principal; 2022-10-06 13:00)
DX: K80.10 Calculus of gallbladder with chronic cholecystitis without obstruction (principal); R10.11 Right upper quadrant pain
CPT/HCPCS: 47562; 85025; 81001; 80048; 36415 ×2; 83735; 81025; 88304; 83690; 80053; 76705; J2550; J2704; J2710; J2543 ×5; J2001; J2250 ×2; J3010 ×2; J1100; J1170 ×2; J2405 ×3; G0378 ×4; J7030 ×5